=== PATIENT | male | born 1985 | race Caucasian/White ===

== ENCOUNTER 2020-03-12 09:18 | Emergency (ER) | payer OTHER, SELFPAY ==
[2020-03-12 09:36] VITALS: BP 137/75; PULSE 79; RESP 16; TEMP 37.3; O2SAT 99
--- NOTE | 2020-03-12 10:14 | PC.NURSE ---
[id number] noted prior to triage pt informed staff he decided to go to er his hemorrhoid lanced. observed cheerful in no distress ambulating without difficulty
--- NOTE | 2020-03-12 10:24 | PC.NURSE ---
[id number] pain not assessed
== END 2020-03-12 09:30 | disposition left against medical advice (07) ==
LOC: EXPBETH 09:32
PROVIDERS: Emergency Provider Nurse Practitioner
DX: Z53.21 Procedure and treatment not carried out due to patient leaving prior to being seen by health care provider (principal)
CPT/HCPCS: 99199

== ENCOUNTER 2023-08-11 07:18 | Observation (INO) | payer OTHER, SELFPAY ==
[2023-08-11] VITALS (41 sets, daily range): BP systolic 120–146; BP diastolic 61–86; PULSE 67–87; RESP 12–18; TEMP 36.6–37; O2SAT 96–100; BMI 23.6
--- NOTE | ~2023-08-11 | CT_ITS ---
CT of the Abdomen and Pelvis: Indication: Abdominal pain Technique: 2.5 mm axial scans were obtained through the abdomen and pelvis following intravenous adm inistration of 100 cc of Omnipaque 350. Dose reduction technique was used on this scan by utilizing a utomated exposure control and iterative reconstruction technique. The dose-length product (DLP) was 3 60.90 mGy-cm. Findings: Scans through the lung bases are unremarkable. The liver, spleen, pancreas, gallbladder, adrenals and kidneys are within normal limits. No evidence of aortic aneurysm. No lymphadenopathy. There is marked, extensive wall thickening versus mass involving the cecum and proximal ascending col on. There is mild pericolic inflammatory change. No abscess, free air, or bowel obstruction evident. Images through the pelvis were performed. Urinary bladder unremarkable. Prostate gland and seminal ve sicles are unremarkable. No ascites. Impression: Marked, extensive wall thickening versus mass involving the cecum and proximal ascending colon. Given patient age and appearance, findings most likely are present an infectious/inflammatory colitis, how ever neoplastic lesion not completely excluded. Correlate clinically. Consider follow-up exam or colo noscopy after acute therapy. Reviewed, dictated and finalized at [facility]. Impression: Marked, extensive wall thickening versus mass involving the cecum and proximal ascending colon. Given patient age and appearance, findings most likely are pre sent an infectious/inflammatory colitis, however neoplastic lesion not complete ly excluded. Correlate clinically. Consider follow-up exam or colonoscopy after acute therapy.
--- NOTE | 2023-08-11 07:58 | ED.ABDPAIN ---
HPI - Abdominal Pain General Chief Complaint: Abdominal Pain Stated Complaint: abd pain Time Seen by Provider: 08/11/23 07:57 37 years old white male came to the emergency room by private car complaining of right lower quadrant pain started 7 days ago, intermittent, started 1 day after started playing volleyball for the 1st time in his life. He denies any fever, chills, nausea, vomiting, diarrhea, constipation or urinary symptoms. Pain is like sharp, no radiation, no relieving factors, worse with certain position and movement. Patient is healthy otherwise, does not take medicine at home, smokes cigarettes, marijuana and take alcohol occasionally Source: patient Related Data Allergies Allergy/AdvReac Type Severity Reaction Status Date / Time Sulfa (Sulfonamide Allergy Unknown HIVES Verified 08/11/23 07:18 Antibiotics) Review of Systems Review of Systems: All systems reviewed & are unremarkable except as noted in HPI and below Exam Narrative: General appearance: Well-developed, well-nourished Skin: Normal color Head: Normocephalic, nontraumatic Eyes: Clear conjunctiva ENT: Oropharynx normal, ears normal, nose normal Neck: Supple, nontender Chest and respiratory: Airway patent, no respiratory distress, no accessory muscle use Heart: Regular rate/rhythm Abdomen: Soft, nontender, no organomegaly, quiet bowel sounds Vascular: Normal peripheral pulses, normal capillary refill. 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, no gross motor deficit Course Vital Signs Vital signs: Vital Signs Temperature 36.8 C 08/11/23 07:24 Pulse Rate 82 08/11/23 07:24 Respiratory Rate 16 08/11/23 07:24 Blood Pressure 146/81 H 08/11/23 07:24 Pulse Oximetry 100 08/11/23 07:24 Oxygen Delivery Room Air 08/11/23 07:24 Temperature 36.6 C 08/11/23 11:30 Pulse Rate 81 08/11/23 12:30 Respiratory Rate 18 08/11/23 12:30 Blood Pressure 121/67 08/11/23 12:30 Pulse Oximetry 100 08/11/23 12:30 Oxygen Delivery Room Air 08/11/23 07:24 MDM - Abdominal Pain MDM Narrative Medical decision making narrative: Right lower quadrant pain after playing volleyball for the 1st time Differential diagnosis musculoskeletal, appendicitis, kidney stone, urinary tract infection, constipation Blood workup today showed WBC of 13.6 CT scan of the abdomen and pelvis with IV contrast showed colitis versus cecal mass Admit to hospitalist, for colonoscopy tomorrow, discussed with Dr. Rocha In the ED patient received 1 L normal saline. Differential Diagnosis Differential diagnosis: Likely other (As above) Medical Records Attestation: I reviewed the patient's medical records. Lab Data Attestation: I reviewed the patient's lab results. 08/11/23 08:16 08/11/23 08:16 Labs: Lab Results 08/11/23 08/11/23 Range/Units 08:16 09:30 WBC 13.6 H (4.5-10.0) K/mm3 RBC 4.98 (4.6-6.20) M/mm3 Hgb 10.9 L (14.0-18.0) g/dL Hct 37.5 L (42.0-52.0) % MCV 75.3 L (80-100) fl MCH 21.9 L (26-34) pg MCHC 29.1 L (32-36) g/dl RDW 17.7 H (11.5-14.5) % Plt Count 449 H (150-375) k/mm3 MPV 9.0 (7.4-10.4) fl Immature Gran % (Auto) 0.6 H (0-0.5) % Neut % (Auto) 76.7 H (45.5-73.1) % Lymph % (Auto) 12.6 L (18.3-44.2) % [place] % (Auto) 8.9 H (2.6-8.5) % Eos % (Auto) 0.9 (0-4.4) % Baso % (Auto) 0.3 (0.2-1.2) % Lymph # (Auto) 1.71 (0.9-3.2) K/mm3 [place] # (Auto) 1.2 H (0.1-0.6) K/mm3 Eos # (Auto) 0.1 (0-0.3) K/mm3 Baso # (Auto) 0.0 (0.0-0.1) K/mm3 Abs Immat Gran (auto) 0.08 H (0.00-0.031) K
[2023-08-11] MEDS: SODIUM CHLORIDE 0.9% IV 1,000 ML 999 ML IV CONT (08:14)
[2023-08-11] MEDS: ONDANSETRON INJ 4 MG/2 ML VIAL IV PUSH (08:14)
[2023-08-11] MEDS: MORPHINE SULFATE (*CRX) 4 MG/ML INJ IV PUSH ×2 (08:15→15:17)
[2023-08-11 08:40] LABS: Alanine Aminotransferase 16 U/L (6-50); Alkaline Phosphatase 80 U/L (38-126); Anion Gap 5 mmol/L (4-12); Aspartate Amino Transferase 23 U/L (17-59); Bilirubin,Total 0.6 mg/dL (0.2-1.3); Blood Urea Nitrogen 10 mg/dL (9-20); Calcium 9.3 mg/dL (8.4-10.2); Carbon Dioxide 28 mmol/L (22-30); Chloride 104 mmol/L (98-107); Estimated CRCL calculation 123 ml/min; Estimated Glomerular Filt Rate > 60; Glucose 143 mg/dL (65-110); Lipase 34 U/L (23-300); Sodium 137 mmol/L (137-145)
[2023-08-11 08:42] LABS: Basophils Percent Auto 0.3 % (0.2-1.2); Eosinophils Absolute Auto 0.1 K/mm3 (0-0.3); Eosinophils Percent Auto 0.9 % (0-4.4); Hematocrit 37.5 % (42.0-52.0); Hemoglobin 10.9 g/dL (14.0-18.0); Immature Granulocyte Absolute 0.08 K/mm3 (0.00-0.031); Immature Granulocyte Percent A 0.6 % (0-0.5); Lymphocytes Absolute Auto 1.71 K/mm3 (0.9-3.2); Lymphocytes Percent Auto 12.6 % (18.3-44.2); Mean Corpuscular HGB Conc 29.1 g/dl (32-36); Mean Corpuscular Hemoglobin 21.9 pg (26-34); Mean Corpuscular Volume 75.3 fl (80-100); Monocytes Absolute Auto 1.2 K/mm3 (0.1-0.6); Monocytes Percent Auto 8.9 % (2.6-8.5); Neutrophils Absolute Auto 10.4 K/mm3 (1.3-6.7); Neutrophils Percent Auto 76.7 % (45.5-73.1); Platelet Count Result 449 k/mm3 (150-375); Red Blood Count 4.98 M/mm3 (4.6-6.20); Red Cell Distribution Width 17.7 % (11.5-14.5); White Blood Count 13.6 K/mm3 (4.5-10.0)
[2023-08-11 08:59] LABS: Hypochromasia 1+; Platelet Estimate Increased (Adequate)
[2023-08-11 09:00] LABS: Ovalocytes 1+; Schistocytes None Seen
[2023-08-11 09:46] LABS: Appearance Urine Clear (Clear); Bilirubin Urine Negative (Negative); Blood Urine Negative (Negative); Color Urine Yellow (Yellow); Glucose Urine UA Negative (Negative); Ketones Urine Negative (Negative); Leukocyte Esterase Ur Negative LEU/UL (Negative); Nitrate Urine Negative (Negative); Protein Urine Negative (Negative); Urobilinogen Urine 0.2 mg/dL (<2.0); pH Urine 6.5 (5.0-9.0)
[2023-08-11 10:01] LABS: Add Urine Microscopic? NO; Specific Grav Ur 1.054 (1.001-1.035)
[2023-08-11] MEDS: SODIUM CHLORIDE 0.9% IV 1,000 ML 125 ML IV CONT (15:17)
[2023-08-11] MEDS: PIPERACILLN/TAZ 3.375GM/NS50ML 3.375 GM/50 ML BAG IVPB ×2 (15:17→19:13)
--- NOTE | 2023-08-11 15:54 | PC.NURSE ---
Pt assessment unchanged. Transfered to room.
--- NOTE | 2023-08-11 16:14 | ADMGEN ---
This patient, Ari Wheeler, was admitted to 2 Medical Room 247-. Patient/family oriented to hospital policies and general routines including ID bracelet, bed and alarms, visiting hours, pain management, procedures, bathroom and other care routines, personal items, smoking policy, room service/diet, and visiting hours. Information on how to activate the Rapid Response Team has been discussed. Patient/Family are encouraged to report perceived risks to care and to ask questions if they do not understand what they are told or what they should do.
--- NOTE | 2023-08-11 16:21 | PM.IMHP ---
H&P: HPI History of Present Illness Date/Time: 08/11/23 16:25 Chief Complaint: Abdominal pain. Narrative: This is a previously healthy 37-year-old male smoker who presented to the emergency department via private vehicle for evaluation of abdominal pain. The patient provides the following history. A week ago he played volleyball and the following day he developed pain in the right lower quadrant which he describes as sharp, intermittent, and nonradiating. It is worse with certain positions and movement. Ibuprofen has not helped much. The last day he has had loose stools admixed with small amounts of blood. He denies fever, chills, sweats, nausea, vomiting, diarrhea, constipation, weight loss, and injuries. No recent travel and sick contacts. No personal or family history of inflammatory bowel disease. He does however have a strong family history of cancer. Father had colon cancer in his late 20s and he passed at age 52 after it recurred. Mother of breast cancer at age 32. His older sister is 39 and is a breast cancer survivor. He has never had a colonoscopy. In the ED: He was afebrile on arrival with stable vital signs. Labs were significant for WBC count of 13.6, hemoglobin 10.9, hematocrit 37.5%, MCV 75.3, platelet 449. CMP was unremarkable aside from a random glucose of 143. CT of the abdomen and pelvis showed extensive wall thickening versus mass involving the cecum and proximal ascending colon. He received Zofran, morphine, and Zosyn in the ED and he is being admitted in this setting for further treatment and workup. Review of Systems Review of Systems: Twelve systems were reviewed and are negative except for as per HPI. [facility] Past Medical History Medical History Tobacco use Family History Family History Mother Breast cancer Father Colon cancer Sibling Breast cancer Grandparent Lung cancer Social History Social History (Updated 08/11/23 @ 21:11 by Jessica Hall PA-C) Social History: Surrogate medical decision maker: Chastity Martin, sister. Code status: Full code. Smoking packs per day: 1 Smoking cigarettes per day: 20.0 Smoking status: Current every day smoker Tobacco type: cigarettes Alcohol intake: current Drinks per week: 4 Substance use: current Substance use type: marijuana Last use: 08/10/23 Do You Feel Safe in your Home?: Yes Lack of Transportation: No Lack of Food: Never True Current Housing: I Have Housing Concerned About Future Housing: No Difficulty Paying Gas/Electric Bills: No Difficulty Paying for Meds: No Currently Unemployed: No Education: High School Diploma/GED Difficulty w/ Childcare or Family Care: No Additional living arrangements comments: Lives in his own home in [place]. Not , no children. Spiritual care concerns: No Meds Home Medications and Allergies Allergies Allergy/AdvReac Type Severity Reaction Status Date / Time Sulfa (Sulfonamide Allergy Unknown HIVES Verified 08/11/23 07:18 Antibiotics) Vital Signs Vital Signs - 24 hr 08/11/23 07:24 08/11/23 08:30 08/11/23 09:30 Temperature 98.2 F 98.0 F 98.0 F Pulse Rate 82 78 74 Respiratory Rate 16 16 16 Blood Pressure 146/81 H 136/69 139/76 Pulse Oximetry 100 98 98 Oxygen Delivery Room Air 08/11/23 10:21 08/11/23 11:30 08/11/23 12:30 Temperature 98.3 F 97.8 F Pulse Rate 72 68 81 Respiratory Rate 16 16 18 Blood Pressure 140/65 122/77 121/67 Pulse Oximetry 98 98 100 Oxygen Delivery 08/11/23 08:03 08/11/23 08:15 08/11/23 08:30 Temperature Pulse Rate Respiratory Rate Blood Pressure Pulse Oximetry 100 100 99 Oxygen Delivery 08/11/23 08:31 08/11/23 08:45 08/11/23 09:01 Temperature Pulse Rate Respiratory Rate Blood Pressure 136/69 Pulse Oximetry 99 100 96 Oxygen Delivery 08/11/23 09:15 08/11/23 09:31 04
[2023-08-11 17:26] LABS: CRP 4.9 mg/dL (<1.0)
[2023-08-11 17:38] LABS: Erythrocyte Sedimentation Rate 28 mm/hr (0-20)
[2023-08-11 18:31] LABS: Iron 19 ug/dL (49-181)
[2023-08-11 18:34] LABS: Procalcitonin 0.1 ng/mL
[2023-08-11] MEDS: polyethylene glycoL 3350 238 GM BOTTLE PO (18:35)
[2023-08-11] MEDS: BISACODYL 5 MG TABLET EC 20 MG PO (18:35)
[2023-08-11 18:41] LABS: Percent Iron Saturation 4 % (20-50)
[2023-08-11 18:54] LABS: Folic Acid 7.6 ng/mL (2.76->20)
[2023-08-11 19:07] LABS: Ferritin 4.43 ng/mL (17.9-464)
[2023-08-11] MEDS: MORPHINE SULFATE (*CRX) 4 MG/ML INJ 2 MG IV PUSH (19:17)
[2023-08-11] MEDS: SODIUM CHLORIDE 0.9% IV 1,000 ML 90 ML IV CONT (22:26)
[2023-08-12] VITALS (7 sets, daily range): BP systolic 74–129; BP diastolic 38–67; PULSE 59–72; RESP 14–21; TEMP 36.3–36.5; O2SAT 97–99
[2023-08-12] MEDS: PIPERACILLN/TAZ 3.375GM/NS50ML 3.375 GM/50 ML BAG IVPB ×2 (00:04→05:28)
[2023-08-12] MEDS: MAGNESIUM CITRATE 300 ML BTL 150 ML PO (01:30)
[2023-08-12 05:22] LABS: Hematocrit 37.8 % (42.0-52.0); Hemoglobin 10.9 g/dL (14.0-18.0); Mean Corpuscular HGB Conc 28.8 g/dl (32-36); Mean Corpuscular Hemoglobin 21.9 pg (26-34); Mean Corpuscular Volume 76.1 fl (80-100); Platelet Count Result 439 k/mm3 (150-375); Red Blood Count 4.97 M/mm3 (4.6-6.20); Red Cell Distribution Width 17.4 % (11.5-14.5)
[2023-08-12 05:33] LABS: Anion Gap 5 mmol/L (4-12); Blood Urea Nitrogen 6 mg/dL (9-20); Calcium 9.3 mg/dL (8.4-10.2); Carbon Dioxide 28 mmol/L (22-30); Chloride 105 mmol/L (98-107); Estimated CRCL calculation 112 ml/min; Estimated Glomerular Filt Rate > 60; Glucose 112 mg/dL (65-110); Magnesium 2.2 mg/dL (1.6-2.3); Potassium 4.2 mmol/L (3.4-5.0); Sodium 138 mmol/L (137-145)
--- NOTE | 2023-08-12 07:29 | PM.IMPN ---
Progress Note: A&P Assessment and Plan (1) Mass of cecum: Code(s): K63.89 - Other specified diseases of intestine Status: Acute (2) Microcytic anemia: Code(s): D50.9 - Iron deficiency anemia, unspecified Status: Acute (3) Abnormal computed tomography of abdomen and pelvis: Code(s): R93.5 - Abnormal findings on diagnostic imaging of other abdominal regions, including retroperitoneum Status: Acute (4) Tobacco use: Code(s): Z72.0 - Tobacco use Status: Acute (5) Right lower quadrant pain: Code(s): R10.31 - Right lower quadrant pain Status: Acute (6) Abdominal pain: Code(s): R10.9 - Unspecified abdominal pain Status: Acute Plan Mass of the Cecum Family HX colon cancer father in his late 20's CT shows mass of the cecum GI consultedwill likely need colonoscopy CEA pending Zosyn for leukocytosis NPO Stool cultures pending Occult stool pending pain management antiemetics IV Fluids PPI Bowel regiment Microcytic anemia Iron panel start iron supplement Hgb stable Smoking smoking cessation education nicotine patch daily remove at night recommend prescription for nicotine patches at discharge Code status: Full code per patient DVT prophylaxis: SCD's Stress ulcer prophylaxis: Protonix 40 daily PT/OT notes: Ambulatory Disposition: Tommy continues admission to the medical unit for abd pain with mass noted in the cecum, GI consulted will likely need a colonoscopy due to history and CEA pending awaiting on further recommendations from GI. Time Spent With Patient Time with patient: 15 - 25 minutes Subjective Date/time seen: 08/12/23 07:29 Interval history: Admission: This is a previously healthy 37-year-old male smoker who presented to the emergency department via private vehicle for evaluation of abdominal pain.? The patient provides the following history. A week ago he played volleyball and the following day he developed pain in the right lower quadrant which he describes as sharp, intermittent, and nonradiating. It is worse with certain positions and movement. Ibuprofen has not helped much. The last day he has had loose stools admixed with small amounts of blood. He denies fever, chills, sweats, nausea, vomiting, diarrhea, constipation, weight loss, and injuries. No recent travel and sick contacts. No personal or family history of inflammatory bowel disease. He does however have a strong family history of cancer. Father had colon cancer in his late 20s and he passed at age 52 after it recurred. Mother of breast cancer at age 32. His older sister is 39 and is a breast cancer survivor. He has never had a colonoscopy. In the ED: He was afebrile on arrival with stable vital signs. Labs were significant for WBC count of 13.6, hemoglobin 10.9, hematocrit 37.5%, MCV 75.3, platelet 449. CMP was unremarkable aside from a random glucose of 143. CT of the abdomen and pelvis showed extensive wall thickening versus mass involving the cecum and proximal ascending colon. He received Zofran, morphine, and Zosyn in the ED and he is being admitted in this setting for further treatment and workup. 08/11: Patient did report some relief of ABD pain overnight but continued to have some diarrhea, remains NPO for GI will likely need colonoscopy due significant family histoy of cancer and father with colon cancer in his late 20's. CEA was ordered and pending Review of Systems Review of Systems: All systems reviewed & are unremarkable except as noted in HPI and below Exam Narrative: Physical Exam: GENERAL: Alert and oriented x 3. No acute distress. Well-nourished. EYES: EOMI. No scleral icterus. PERRLA. HEENT: Moist mucous membranes. No cervical lymphadenopathy. LUNGS: Clear to auscultation bilaterally. No accessory muscle use. CARDIOVASCULAR: Regular rate and rhythm. No murmur. No JVD. S1-S2 ABDOMEN:
[2023-08-12] MEDS: PANTOPRAZOLE SODIUM IV 40 MG VIAL IV PUSH (08:50)
[2023-08-12] MEDS: MORPHINE SULFATE (*CRX) 4 MG/ML INJ 2 MG IV PUSH (08:52)
[2023-08-12] MEDS: ONDANSETRON INJ 4 MG/2 ML VIAL IV PUSH (08:53)
[2023-08-12] MEDS: LACTATED RINGERS 1,000 ML 150 ML IV CONT (11:11)
--- NOTE | 2023-08-12 11:47 | WPDGICN ---
Assessment and Plan Assessment and plan (1) Right lower quadrant pain: Code(s): R10.31 - Right lower quadrant pain Status: Acute Assessment and Plan: possible colitis based on clinical history but CT scan can not rule out malignancy, he is already doing better given strong family history will do colonoscopy if more diarrhea then will collect stool sample (2) Colitis: Code(s): K52.9 - Noninfective gastroenteritis and colitis, unspecified Status: Acute Assessment and Plan: given empirically abx already doing better colonoscopy (3) Leukocytosis: Code(s): D72.829 - Elevated white blood cell count, unspecified Status: Acute Assessment and Plan: monitor (4) Abnormal computed tomography of abdomen and pelvis: Code(s): R93.5 - Abnormal findings on diagnostic imaging of other abdominal regions, including retroperitoneum Status: Acute GI Consult Note Consult date/time: 08/12/23 11:47 Reason for consult: abnormal colon in CT scan, colitis HPI: Ari Wheeler is a 37 year old male who about 1 week ago developed new onset of pain in the right lower quadrant which he describes as sharp, intermittent, and nonradiating. Ibuprofen did not help, then noted diarrhea with small amounts of blood. He denies fever, chills, sweats, nausea, vomiting. No recent travel and sick contacts. No personal or family history of inflammatory bowel disease. Father had colon cancer in his late 20s and he passed at age 52 after it recurred. Mother of breast cancer at age 32. He has never had a colonoscopy. ER evaluation with WBC count of 13.6, hemoglobin 10.9, hematocrit 37.5%, MCV 75.3, platelet 449. CT of the abdomen and pelvis showed extensive wall thickening versus mass involving the cecum and proximal ascending colon. He received Zofran, morphine, and Zosyn. He is better today and completed bowel prep. Review of Systems Constitutional: Constitutional: Denies body ache(s) Eyes: Eyes: Denies blurry vision ENT: Reports Normal hearing present, Denies headache(s) and Denies neck pain Cardiovascular: Cardiovascular: Denies chest pain and Denies dyspnea Respiratory: Respiratory: Denies dyspnea Gastrointestinal: Gastrointestinal: Reports abdominal pain and Reports diarrhea Genitourinary: Genitourinary: Denies dysuria Musculoskeletal: Musculoskeletal: Denies neck pain Integumentary/Breasts: Skin/Breast: Denies dry skin Neurologic: Reports Normal hearing present, Denies headache(s) and Denies weakness Psychiatric: Psychiatric: Denies anxiety Endocrine: Endocrine: Denies change in body appearance Hematologic/Lymphatic: Hematologic/Lymphatic: Denies easy bleeding Allergic/Immunologic: Allergic/Immunologic: Denies urticaria PMFSH Past Medical History Medical History Colitis Leukocytosis Tobacco use Family History Family History Mother Breast cancer Father Colon cancer Sibling Breast cancer Grandparent Lung cancer Social History Social History (Updated 08/11/23 @ 21:11 by Jessica Hall PA-C) Social History: Surrogate medical decision maker: Chastity Veronica, sister. Code status: Full code. Smoking packs per day: 1 Smoking cigarettes per day: 20.0 Smoking status: Current every day smoker Tobacco type: cigarettes Alcohol intake: current Drinks per week: 4 Substance use: current Substance use type: marijuana Last use: 08/10/23 Do You Feel Safe in your Home?: Yes Lack of Transportation: No Lack of Food: Never True Current Housing: I Have Housing Concerned About Future Housing: No Difficulty Paying Gas/Electric Bills: No Difficulty Paying for Meds: No Currently Unemployed: No Education: High School Diploma/GED Difficulty w/ Childcare or Family Care: No Additional living arrangements comments: Lives in his own home in [facility]
--- NOTE | 2023-08-12 11:51 | WPDANESEPPF ---
Anes - Initial Pre Proc Eval Procedure: Operation Date: 08/12/23 17:30 Proposed Procedures p Colonoscopy - Carlos Alberto Yepez MD Date/Time: 08/12/23 11:51 Surgeon: Ofelia Márquez MD Pre Op Diagnosis: Colitis Versus Cecal Mass Patient Data Age: 37 Gender: M Height: 1.93 m Weight: 88.8 kg Last Vital Signs Temp 97.4 F L 08/12/23 11:04 Pulse 70 08/12/23 11:04 Resp 14 08/12/23 11:04 BP 120/60 08/12/23 11:04 Pulse Ox 99 08/12/23 11:04 O2 Del Method Room Air 08/12/23 11:04 FiO2 21 08/12/23 08:00 Allergies Allergy/AdvReac Type Severity Reaction Status Date / Time Sulfa (Sulfonamide Allergy Unknown HIVES Verified 08/12/23 11:06 Antibiotics) Laboratory Tests 08/11/23 08/12/23 16:58 04:52 WBC 12.0 H K/mm3 (4.5-10.0) RBC 4.97 M/mm3 (4.6-6.20) Hgb 10.9 L g/dL (14.0-18.0) Hct 37.8 L % (42.0-52.0) MCV 76.1 L fl (80-100) MCH 21.9 L pg (26-34) MCHC 28.8 L g/dl (32-36) RDW 17.4 H % (11.5-14.5) Plt Count 439 H k/mm3 (150-375) MPV 9.0 fl (7.4-10.4) ESR 28 H mm/hr (0-20) Sodium 138 mmol/L (137-145) Potassium 4.2 mmol/L (3.4-5.0) Chloride 105 mmol/L (98-107) Carbon Dioxide 28 mmol/L (22-30) Anion Gap 5 L mmol/L (4-12) BUN 6 L mg/dL (9-20) Creatinine 1.00 mg/dL (0.7-1.3) Estim Creat Clear Calc 112 ml/min Estimated GFR > 60 (59 - ) Glucose 112 H mg/dL (65-110) Calcium 9.3 mg/dL (8.4-10.2) Magnesium 2.2 mg/dL (1.6-2.3) Iron 19 L ug/dL (49-181) TIBC 423 ug/dL (265-497) % Saturation 4 L % (20-50) Ferritin 4.43 L ng/mL (17.9-464) C-Reactive Protein 4.9 H mg/dL (<1.0) Carcinoembryonic Ag Pending Vitamin B12 368.0 pg/mL (239-931) Folate 7.6 ng/mL (2.76->20) Procalcitonin 0.1 ng/mL TSH (Reflex) 2.980 uIU/mL (0.465-4.68) Patient hx anesthesia problems: none Family hx anesthesia problems: none Results Review: All pre-operative results and documents have been reviewed as part of the pre-operative evaluation. [facility] Past Medical History Medical History Colitis Leukocytosis Tobacco use Family History Family History Mother Breast cancer Father Colon cancer Sibling Breast cancer Grandparent Lung cancer Social History Social History (Updated 08/11/23 @ 21:11 by Jessica Hall PA-C) Social History: Surrogate medical decision maker: Chastity Martin, sister. Code status: Full code. Smoking packs per day: 1 Smoking cigarettes per day: 20.0 Smoking status: Current every day smoker Tobacco type: cigarettes Alcohol intake: current Drinks per week: 4 Substance use: current Substance use type: marijuana Last use: 08/10/23 Do You Feel Safe in your Home?: Yes Lack of Transportation: No Lack of Food: Never True Current Housing: I Have Housing Concerned About Future Housing: No Difficulty Paying Gas/Electric Bills: No Difficulty Paying for Meds: No Currently Unemployed: No Education: High School Diploma/GED Difficulty w/ Childcare or Family Care: No Additional living arrangements comments: Lives in his own home in [place]. Not , no children. Spiritual care concerns: No Anes - Eval Final PreProcedure Day of Procedure 08/12/23 11:51 Patient weight: normal Heart: regular rate and rhythm Lungs: clear to auscultation Airway: Mallampati scale class II Neurological: alert and oriented Last oral intake: >/= 8 hours ASA classification: II Emergent: no Anesthetic plan: proceed Anesthesia type and monitoring: general GIVS and standard monitoring Results Review: All pre-operative results and documents have been reviewed as part of the pre
[2023-08-12] MEDS: MORPHINE SULFATE (*CRX) 2 MG/ML INJ IV PUSH ×3 (14:03→21:02)
[2023-08-12] MEDS: SODIUM CHLORIDE 0.9% IV 1,000 ML 90 ML IV CONT (14:03)
--- NOTE | 2023-08-12 14:43 | PM.CNGS ---
Assessment and Plan Assessment and plan (1) Mass of cecum: Code(s): K63.89 - Other specified diseases of intestine Status: Acute Assessment and Plan: Patient with malignant-appearing cecal mass on colonoscopy today. Biopsies taken. He is not having any obstructive symptoms and no evidence of an obstruction on CT. There is no evidence of distant metastasis on his CT scan of the abdomen and pelvis. CEA was ordered and is pending. Discussed with the patient that this is likely colon cancer. I discussed the case with Dr. Kowalski who recommends a right hemicolectomy. We can try to do this during this hospitalization and since he has already been prepped for the colonoscopy, I will keep him on clear liquids to hopefully avoid re-prepping him for the surgery. Will follow along and plan timing of the surgery. (2) Microcytic anemia: Code(s): D50.9 - Iron deficiency anemia, unspecified Status: Acute (3) Tobacco use: Code(s): Z72.0 - Tobacco use Status: Acute Plan I have discussed the patient's case and plan of care with Dr. Kowalski. Thank you for allowing us to see the patient in consultation and we will continue to follow along with you. History of Present Illness Consult details Consult date: 08/12/23 Reason for consult: other (Cecal mass) Requesting physician: Carlos Alberto Yepez MD Narrative: This is a 37-year-old man who we have been asked to see in surgical consultation for a cecal mass. He presented to the ER yesterday for RLQ abdominal pain. He noticed some RLQ abdominal pain after playing volleyball about a week ago. His pain was nearly constant for about 3 days and then improved. It then returned a few days ago and progressively got worse. He denies bloating, nausea or vomiting. He does report diarrhea a few days prior to admission with one episode of bloody stool. He typically has a bowel movement every 2-3 days, which has been this way his entire life. Denies any other bowel habit changes, any other episodes of blood in the stool, no weight loss or fatigue. Workup in the ER showed mild anemia and CT evidence of wall thickening of the cecum and ascending colon. No signs of a bowel obstruction or perforation. CT suggested colitis versus a mass. He was admitted and initially on broad-spectrum IV antibiotics. GI consulted and he had a colonoscopy today that showed a large fungating malignant-appearing mass measuring about 5 cm. Spot ink was injected. Antibiotics were stopped. Biopsies were taken and are pending. He is now seen on the medical floor. He reports his abdominal pain improved significantly after he had the bowel prep for the colonoscopy. He has a family history of multiple cancers. His dad had colon cancer in his late 20's and had a colon resection. This returned and he past away in his 50's. His mother and sister have a history of breast cancer. He was told he should start having colonoscopies in his 20's, but he has pushed this off. Denies every having a colonoscopy prior to this hospitalization. No previous medical history or previous surgeries. Review of Systems Review of Systems: All systems reviewed & are unremarkable except as noted in HPI and below PMFSH Past Medical History Medical History Tobacco use Surgical History Surgical History No pertinent past surgical history Family History Family History Mother Breast cancer Father Colon cancer Sibling Breast cancer Grandparent Lung cancer Social History Social History Social History: Surrogate medical decision maker: Chastity Martin, sister. Code status: Full code. Smoking packs per day: 1 Smoking cigarettes per day: 20.0 Smoking status: Current every day smoker Tobacco type: cigarettes Alcohol intake: current Drinks
[2023-08-13] MEDS: SODIUM CHLORIDE 0.9% IV 1,000 ML 90 ML IV CONT (00:22)
[2023-08-13 00:46] LABS: Carcinoembryonic Antigen 6.5 ng/mL (0.0-3.0)
[2023-08-13 05:12] VITALS: BP 113/59; PULSE 60; RESP 18; TEMP 36.8; O2SAT 98
[2023-08-13 05:23] LABS: Basophils Absolute Auto 0.1 K/mm3 (0.0-0.1); Basophils Percent Auto 0.8 % (0.2-1.2); Eosinophils Absolute Auto 0.3 K/mm3 (0-0.3); Eosinophils Percent Auto 2.9 % (0-4.4); Hemoglobin 9.5 g/dL (14.0-18.0); Immature Granulocyte Absolute 0.05 K/mm3 (0.00-0.031); Immature Granulocyte Percent A 0.6 % (0-0.5); Lymphocytes Absolute Auto 2.18 K/mm3 (0.9-3.2); Mean Corpuscular HGB Conc 28.8 g/dl (32-36); Mean Corpuscular Hemoglobin 21.9 pg (26-34); Mean Corpuscular Volume 76.2 fl (80-100); Mean Platelet Volume 9.2 fl (7.4-10.4); Monocytes Absolute Auto 0.7 K/mm3 (0.1-0.6); Monocytes Percent Auto 7.9 % (2.6-8.5); Neutrophils Absolute Auto 5.5 K/mm3 (1.3-6.7); Neutrophils Percent Auto 62.8 % (45.5-73.1); Platelet Count Result 405 k/mm3 (150-375); Red Blood Count 4.33 M/mm3 (4.6-6.20); Red Cell Distribution Width 17.3 % (11.5-14.5); White Blood Count 8.7 K/mm3 (4.5-10.0)
[2023-08-13 05:39] LABS: Hypochromasia 1+; Ovalocytes 1+; Platelet Estimate Increased (Adequate); Schistocytes None Seen
--- NOTE | 2023-08-13 07:15 | PM.IMPN ---
Progress Note: A&P Assessment and Plan (1) Mass of cecum: Code(s): K63.89 - Other specified diseases of intestine Status: Acute (2) Microcytic anemia: Code(s): D50.9 - Iron deficiency anemia, unspecified Status: Acute (3) Abnormal computed tomography of abdomen and pelvis: Code(s): R93.5 - Abnormal findings on diagnostic imaging of other abdominal regions, including retroperitoneum Status: Acute (4) Tobacco use: Code(s): Z72.0 - Tobacco use Status: Acute (5) Right lower quadrant pain: Code(s): R10.31 - Right lower quadrant pain Status: Acute (6) Abdominal pain: Code(s): R10.9 - Unspecified abdominal pain Status: Acute Plan Mass of the Cecum Family HX colon cancer father in his late 20's CT shows mass of the cecum GI consultedwill likely need colonoscopy CEA pending Zosyn for leukocytosis NPO Stool cultures pending Occult stool pending pain management antiemetics IV Fluids PPI Bowel regiment 08/12: colonoscopy suspicious cecum mass biopsy sent CEA elevated 6.4 Surgery recommending RT hemicolectomy oncology consulted clear liquids plan for surgery Microcytic anemia Iron panel start iron supplement Hgb stable Smoking smoking cessation education nicotine patch daily remove at night recommend prescription for nicotine patches at discharge Code status: Full code per patient DVT prophylaxis: SCD's Stress ulcer prophylaxis: Protonix 40 daily PT/OT notes: Ambulatory Disposition: Patient continues admission plan for surgery and consulted to oncology. Time Spent With Patient Time with patient: 15 - 25 minutes Subjective Date/time seen: 08/13/23 07:15 Interval history: Admission: This is a previously healthy 37-year-old male smoker who presented to the emergency department via private vehicle for evaluation of abdominal pain.? The patient provides the following history. A week ago he played volleyball and the following day he developed pain in the right lower quadrant which he describes as sharp, intermittent, and nonradiating. It is worse with certain positions and movement. Ibuprofen has not helped much. The last day he has had loose stools admixed with small amounts of blood. He denies fever, chills, sweats, nausea, vomiting, diarrhea, constipation, weight loss, and injuries. No recent travel and sick contacts. No personal or family history of inflammatory bowel disease. He does however have a strong family history of cancer. Father had colon cancer in his late 20s and he passed at age 52 after it recurred. Mother of breast cancer at age 32. His older sister is 39 and is a breast cancer survivor. He has never had a colonoscopy. In the ED: He was afebrile on arrival with stable vital signs. Labs were significant for WBC count of 13.6, hemoglobin 10.9, hematocrit 37.5%, MCV 75.3, platelet 449. CMP was unremarkable aside from a random glucose of 143. CT of the abdomen and pelvis showed extensive wall thickening versus mass involving the cecum and proximal ascending colon. He received Zofran, morphine, and Zosyn in the ED and he is being admitted in this setting for further treatment and workup. 08/11: Patient did report some relief of ABD pain overnight but continued to have some diarrhea, remains NPO for GI will likely need colonoscopy due significant family histoy of cancer and father with colon cancer in his late 20's. CEA was ordered and pending 08/12: Patient underwent a colonoscopy yesterday which showed a suspicious mass at the cecum and ascending colon, CEA elevated at 6.4. Patient was informed of findings and surgery is recommending a right hemicolectomy, a consult to oncology was also placed biopsy pending. Review of Systems Review of Systems: Twelve systems were reviewed and are negative except for as per HPI. All systems reviewed & are unremarkable except
[2023-08-13 07:18] LABS: Alanine Aminotransferase 11 U/L (6-50); Albumin Level 3.3 g/dL (3.5-5.1); Alkaline Phosphatase 68 U/L (38-126); Anion Gap 3 mmol/L (4-12); Aspartate Amino Transferase 26 U/L (17-59); Bilirubin,Total 0.6 mg/dL (0.2-1.3); Blood Urea Nitrogen 6 mg/dL (9-20); Calcium 8.7 mg/dL (8.4-10.2); Carbon Dioxide 29 mmol/L (22-30); Chloride 106 mmol/L (98-107); Estimated CRCL calculation 123 ml/min; Estimated Glomerular Filt Rate > 60; Glucose 96 mg/dL (65-110); Potassium 4.1 mmol/L (3.4-5.0); Sodium 138 mmol/L (137-145)
--- NOTE | 2023-08-13 08:33 | WPDANESPN ---
Anes - Prog Note Post-Op Date/Time: 08/13/23 08:33 Vital Signs: Last Vital Signs Temp 36.8 C 08/13/23 05:12 Pulse 60 08/13/23 05:12 Resp 18 08/13/23 05:12 BP 113/59 L 08/13/23 05:12 Pulse Ox 98 08/13/23 05:12 O2 Del Method Room Air 08/12/23 12:32 FiO2 21 08/12/23 08:00 Pain Score (VAS): 0 I/O: Intake & Output 08/12/23 08/13/23 08/13/23 23:59 07:59 15:59 Intake Total 360 1178.5 Balance 360 1178.5 Laboratory Tests 08/13/23 04:52 08/13/23 04:52 08/11/23 08/13/23 16:58 04:52 WBC 8.7 RBC 4.33 L Hgb 9.5 L Hct 33.0 L MCV 76.2 L MCH 21.9 L MCHC 28.8 L RDW 17.3 H Plt Count 405 H MPV 9.2 Immature Gran % (Auto) 0.6 H Neut % (Auto) 62.8 Lymph % (Auto) 25.0 [place] % (Auto) 7.9 Eos % (Auto) 2.9 Baso % (Auto) 0.8 Lymph # (Auto) 2.18 [place] # (Auto) 0.7 H Eos # (Auto) 0.3 Baso # (Auto) 0.1 Abs Immat Gran (auto) 0.05 H Absolute Neuts (auto) 5.5 Absolute Nucleated RBC 0.000 Nucleated RBC % 0.0 Platelet Estimate Increased Hypochromasia 1+ Ovalocytes 1+ Schistocytes None seen Sodium 138 Potassium 4.1 Chloride 106 Carbon Dioxide 29 Anion Gap 3 L BUN 6 L Creatinine 0.90 Estim Creat Clear Calc 123 Estimated GFR > 60 Glucose 96 Calcium 8.7 Total Bilirubin 0.6 AST 26 ALT 11 Alkaline Phosphatase 68 Total Protein 6.0 L Albumin 3.3 L Carcinoembryonic Ag 6.5 H Patient Feedback: Patient satisfied with anesthetic care.
[2023-08-13] MEDS: PANTOPRAZOLE SODIUM IV 40 MG VIAL IV PUSH (09:37)
--- NOTE | 2023-08-13 10:00 | PM.PNGS ---
Progress Note: A&P Assessment and Plan (1) Mass of cecum: Code(s): K63.89 - Other specified diseases of intestine Status: Acute Assessment and Plan: Patient with malignant-appearing cecal mass on colonoscopy. Biopsies pending. No signs or symptoms of an obstruction. CEA 6.5. We will wait for the biopsy results, but this is likely colon cancer. We will advance his diet as tolerated today and I will transition him to oral pain medications. If he is able to tolerate a diet and his abdominal pain is well-controlled, then he could be discharged home from our standpoint. We will plan to set him up for a right hemicolectomy next week as an outpatient once we see his biopsy results. The patient would prefer to go home and return rather than waiting days for an opening in the surgery schedule after his biopsies come back. He is aware that he would have to go through bowel prep again for this surgery. (2) Microcytic anemia: Code(s): D50.9 - Iron deficiency anemia, unspecified Status: Acute (3) Tobacco use: Code(s): Z72.0 - Tobacco use Status: Acute Plan I have discussed the patient's case and plan of care with Dr. Kowalski. Subjective Subjective Date/Time Seen: 08/13/23 10:00 Patient reports: pain is less, tolerating liquids well, flatus, bowel movement and afebrile Interval history: Patient seen this morning. He still having some right lower quadrant abdominal pain, but reports this has improved since admission. He is currently getting IV morphine but has no options for oral pain medications. He denies any nausea, bloating, or vomiting. He is tolerating clear liquids. Exam Const: General: comfortable and no acute distress Nutritional Appearance: average body habitus Orientation/consciousness: patient oriented x3 GI: Inspection: non-distended and no visible herniation GI Palp: Yes Soft to palpation, Yes Tenderness to palpation present (GI) (RLQ), No Guarding due to palpation present (GI), Yes Palpable mass present (Firm palpable mass and right lower quadrant) and No Rebound tenderness present Auscultation: normal bowel sounds Objective Data Vital Signs Vital Signs: Vital Signs - 24 hr 08/12/23 11:04 08/12/23 12:12 08/12/23 12:22 Temperature 97.4 F L Pulse Rate 70 69 59 L Respiratory Rate 14 21 H 19 Blood Pressure 120/60 74/38 L 94/45 L Pulse Oximetry 99 98 98 Oxygen Delivery Room Air Room Air Room Air 08/12/23 12:32 08/12/23 14:00 08/12/23 21:01 Temperature 97.5 F L 97.7 F Pulse Rate 66 63 66 Respiratory Rate 15 14 20 Blood Pressure 100/61 129/67 120/65 Pulse Oximetry 99 97 98 Oxygen Delivery Room Air 08/13/23 05:12 Temperature 98.2 F Pulse Rate 60 Respiratory Rate 18 Blood Pressure 113/59 L Pulse Oximetry 98 Oxygen Delivery Intake/Output Intake/Output: Intake & Output 08/10/23 08/11/23 08/12/23 08/13/23 23:59 23:59 23:59 23:59 Intake Total 2783.8 2060 1178.5 Balance 2783.8 2060 1178.5 Meds/Results Medications: Active Medications Generic Name Dose Route Start Last Admin Trade Name Freq PRN Reason Stop Dose Admin Acetaminophen 650 mg 08/13/23 09:26 Acetaminophen 325 Mg Tablet PO Q6H PRN Mild Pain (1-3) or Fever Hydrocodone Bitart/Acetaminophen 1 tab 08/13/23 09:27 Hydrocodone/Acetaminophen (*Crx) 5-325 Mg Tablet PO Q4H PRN Pain Rated 4-6 Hydrocodone Bitart/Acetaminophen 1 tab 08/13/23 09:27 Hydrocodone/Acetaminophen (*Crx) 10-325 Mg Tablet PO Q6H PRN Pain Rated 7-10 Sodium Chloride 1,000 mls @ 90 mls/hr 08/11/23 13:45 08/13/23 00:22 Normal Saline Iv IV CONT 90 mls/hr .[id number] MIYA Administration Morphine Sulfate 2 mg 08/12/23 10:40 08/12/23 21:02 Morphine Sulfate (*Crx) 2 Mg/Ml Inj IV PUSH 2 mg Q2H PRN Administration Breakthrough Pain Ondansetron HCl 4 mg 08/11/23 13:43 08/12/23 08:53 Ondansetron Inj 4 Mg/2 Ml Vial IV PUSH 4 mg Q4H PRN Administra
[2023-08-13] MEDS: HYDROcodone/acetaminophen (*CRX) 5-325 MG TABLET 1 TAB PO (12:28)
[2023-08-13 14:00] VITALS: BP 118/62; PULSE 62; RESP 18; TEMP 36.6; O2SAT 98
--- NOTE | 2023-08-13 15:40 | PM.DS ---
DS: Admitting Diagnosis Discharge Date 08/15/2023 Admitting Diagnosis Mass of the Cecum DS: Discharge Diagnosis Discharge Diagnosis (1) Mass of cecum: Code(s): K63.89 - Other specified diseases of intestine Status: Acute (2) Microcytic anemia: Code(s): D50.9 - Iron deficiency anemia, unspecified Status: Acute (3) Abnormal computed tomography of abdomen and pelvis: Code(s): R93.5 - Abnormal findings on diagnostic imaging of other abdominal regions, including retroperitoneum Status: Acute (4) Tobacco use: Code(s): Z72.0 - Tobacco use Status: Acute (5) Right lower quadrant pain: Code(s): R10.31 - Right lower quadrant pain Status: Acute (6) Abdominal pain: Code(s): R10.9 - Unspecified abdominal pain Status: Acute Plan Mass of the Cecum Family HX colon cancer father in his late 20's CT shows mass of the cecum GI consultedwill likely need colonoscopy CEA pending Zosyn for leukocytosis NPO Stool cultures pending Occult stool pending pain management antiemetics IV Fluids PPI Bowel regiment 08/12: colonoscopy suspicious cecum mass biopsy sent CEA elevated 6.4 Surgery recommending RT hemicolectomy oncology consulted clear liquids plan for surgery Microcytic anemia Iron panel start iron supplement Hgb stable Smoking smoking cessation education nicotine patch daily remove at night recommend prescription for nicotine patches at discharge Disposition: Patient was discharged to home and scheduled for surgery Thursday08/17/2023 for RT hemicolectomy DS: Summary Hospital Course Reason for hospitalization: Mass in Cecum Hospital Course: Admission: This is a previously healthy 37-year-old male smoker who presented to the emergency department via private vehicle for evaluation of abdominal pain.? The patient provides the following history. A week ago he played volleyball and the following day he developed pain in the right lower quadrant which he describes as sharp, intermittent, and nonradiating. It is worse with certain positions and movement. Ibuprofen has not helped much. The last day he has had loose stools admixed with small amounts of blood. He denies fever, chills, sweats, nausea, vomiting, diarrhea, constipation, weight loss, and injuries. No recent travel and sick contacts. No personal or family history of inflammatory bowel disease. He does however have a strong family history of cancer. Father had colon cancer in his late 20s and he passed at age 52 after it recurred. Mother of breast cancer at age 32. His older sister is 39 and is a breast cancer survivor. He has never had a colonoscopy. In the ED: He was afebrile on arrival with stable vital signs. Labs were significant for WBC count of 13.6, hemoglobin 10.9, hematocrit 37.5%, MCV 75.3, platelet 449. CMP was unremarkable aside from a random glucose of 143. CT of the abdomen and pelvis showed extensive wall thickening versus mass involving the cecum and proximal ascending colon. He received Zofran, morphine, and Zosyn in the ED and he is being admitted in this setting for further treatment and workup. 08/11: Patient did report some relief of ABD pain overnight but continued to have some diarrhea, remains NPO for GI will likely need colonoscopy due significant family histoy of cancer and father with colon cancer in his late 20's. CEA was ordered and pending 08/12:? Patient underwent a colonoscopy yesterday which showed a suspicious mass at the cecum and ascending colon, CEA elevated at 6.4.? Patient was informed of findings and surgery is recommending a right hemicolectomy, a consult to oncology was also placed biopsy pending.? 08/13: Biopsy showing adenocarcinoma surgery has planned for surgery Wednesday 08/16 , patient requested to go home and come back was passing gas and tolerating small amounts of oral intake he was made aware to seek medical attention
--- NOTE | 2023-08-13 17:42 | WPDGIPROGNO ---
Progress Note: A&P Assessment and Plan (1) Colorectal cancer: Code(s): C19 - Malignant neoplasm of rectosigmoid junction Status: Acute Assessment and Plan: bx c/w colon cancer (family history of colon cancer in father) surgery will set up outpatient partial colectomy also will refer to oncology as outpatient (2) Leukocytosis: Code(s): D72.829 - Elevated white blood cell count, unspecified Status: Acute Assessment and Plan: resolved no signs of colitis (3) Microcytic anemia: Code(s): D50.9 - Iron deficiency anemia, unspecified Status: Acute Assessment and Plan: probably from colon cancer (4) Right lower quadrant pain: Code(s): R10.31 - Right lower quadrant pain Status: Acute (5) Abnormal computed tomography of abdomen and pelvis: Code(s): R93.5 - Abnormal findings on diagnostic imaging of other abdominal regions, including retroperitoneum Status: Acute Subjective Date/time seen: 08/13/23 14:00 Interval history: I talked to pathologist, bx c/w adenocarcinoma patient was already evaluated by surgery and will have partial colectomy as outpatient Review of Systems Review of Systems: All systems reviewed & are unremarkable except as noted in HPI and below Exam Narrative: GENERAL: Alert and oriented x 3. No acute distress. Well-nourished. EYES: EOMI. No scleral icterus. PERRLA. HEENT: Moist mucous membranes. No cervical lymphadenopathy. LUNGS: Clear to auscultation bilaterally. No accessory muscle use. CARDIOVASCULAR: Regular rate and rhythm. No murmur. No JVD. S1-S2 ABDOMEN: Soft, mild tenderness and non-distended. No palpable masses. EXTREMITIES: No edema. Non-tender SKIN: No rashes or lesions. Skin warm, dry. NEUROLOGIC: No focal neurological deficits. CN II-XII grossly intact PSYCHIATRIC: Appropriate mood and affect. Good judgement and insight. No visual or auditory hallucinations. No suicidal or homicidal ideation. Objective Data Vital Signs Vital Signs: Vital Signs - 24 hr 08/12/23 21:01 08/13/23 05:12 08/13/23 08:00 Temperature 97.7 F 98.2 F Pulse Rate 66 60 Respiratory Rate 20 18 Blood Pressure 120/65 113/59 L Pulse Oximetry 98 98 Oxygen Delivery Room Air 08/13/23 14:00 Temperature 98 F Pulse Rate 62 Respiratory Rate 18 Blood Pressure 118/62 Pulse Oximetry 98 Oxygen Delivery Intake/Output Intake/Output: Intake & Output 08/10/23 08/11/23 08/12/23 08/13/23 23:59 23:59 23:59 23:59 Intake Total 2783.8 2060 1538.5 Balance 2783.8 2060 1538.5 Meds/Results Radiology Results: ITS Impressions Abdomen/Pelvis CT 08/11/23 11:53 Impression: Marked, extensive wall thickening versus mass involving the cecum and proximal ascending colon. Given patient age and appearance, findings most likely are present an infectious/inflammatory colitis, however neoplastic lesion not completely excluded. Correlate clinically. Consider follow-up exam or colonoscopy after acute therapy. Labs Labs: Laboratory Results - last 24 hr 08/11/23 08/13/23 16:58 04:52 WBC 8.7 RBC 4.33 L Hgb 9.5 L Hct 33.0 L MCV 76.2 L MCH 21.9 L MCHC 28.8 L RDW 17.3 H Plt Count 405 H MPV 9.2 Immature Gran % (Auto) 0.6 H Neut % (Auto) 62.8 Lymph % (Auto) 25.0 [place] % (Auto) 7.9 Eos % (Auto) 2.9 Baso % (Auto) 0.8 Lymph # (Auto) 2.18 [place] # (Auto) 0.7 H Eos # (Auto) 0.3 Baso # (Auto) 0.1 Abs Immat Gran (auto) 0.05 H Absolute Neuts (auto) 5.5 Absolute Nucleated RBC 0.000 Nucleated RBC % 0.0 Platelet Estimate Increased Hypochromasia 1+ Ovalocytes 1+ Schistocytes None seen Sodium 138 Potassium 4.1 Chloride 106 Carbon Dioxide 29 Anion Gap 3 L BUN 6 L Creatinine 0.90 Estim Creat Clear Calc 123 Estimated GFR > 60 Glucose 96 Calcium 8.7 Total Bilirubin 0.6 AST 26 ALT 11 Alkaline Phosphatase 68 Total Protei
== END 2023-08-13 16:50 | disposition home or self-care (01) ==
LOC: ANHED 13:49 → ANH2MED 15:24
PROVIDERS: Internal Medicine Gastroenterology; Nurse Practitioner Family; Physician Assistant; Admitting Provider Hospitalist; Emergency Provider Emergency Medicine; Visit Provider Hospitalist
PROC: 0DJD8ZZ Inspection of Lower Intestinal Tract, Via Natural or Artificial Opening Endoscopic (ICD-10-PCS; CPT 45378; principal; 2023-08-12 17:30)
DX: C18.0 Malignant neoplasm of cecum (principal); D50.9 Iron deficiency anemia, unspecified; F17.210 Nicotine dependence, cigarettes, uncomplicated; F12.90 Cannabis use, unspecified, uncomplicated; F10.90 Alcohol use, unspecified, uncomplicated; Z80.0 Family history of malignant neoplasm of digestive organs
CPT/HCPCS: 45380; 45381; 36415; 74177; 80048; 80053; 81003; 82378; 82607; 82728; 82746; 83540; 83550; 83690; 83735; 84145; 84443; 85025; 85027; 85652; 86140; 88305; 96361; 96365; 96375; 96376; 99285; A9270; C9113; G0378; J1596; J2270; J2371; J2405; J2543; J2704; J7030; J7120; Q9967

== ENCOUNTER 2023-08-17 07:57 | Outpatient (CLI) | payer OTHER, SELFPAY ==
--- NOTE | 2023-08-17 08:51 | ECG_ITS ---
Measurements Intervals [place] Rate: 77 P: 63 CA: 154 QRS: -11 QRSD: 97 T: 34 QT: 370 QTc: 401 Interpretive Statements SINUS RHYTHM INCOMPLETE RBBB BORDERLINE ECG SEE SCANNED COPY FOR SIGNATURE MTDD
[2023-08-17 09:31] LABS: Hematocrit 37.1 % (42.0-52.0); Hemoglobin 10.9 g/dL (14.0-18.0)
== END 2023-08-17 07:58 | disposition home or self-care (01) ==
LOC: ANHSURGERY 08:01
PROVIDERS: Anesthesiology; Visit Provider Surgery
DX: C19 Malignant neoplasm of rectosigmoid junction (principal); Z01.818 Encounter for other preprocedural examination; I45.10 Unspecified right bundle-branch block
CPT/HCPCS: 36415; 85014; 85018; 86850; 86900; 86901; 93005

== ENCOUNTER 2023-08-26 12:13 | Inpatient (IN) | payer OTHER, SELFPAY ==
--- NOTE | 2023-08-17 07:45 | PC.NURSE ---
Addendum entered by April Limon RN 08/20/23 14:31: PT TO ARRIVE AT 0600 ON 08/26/23 FOR SURGERY AT 0730. Original Note: PRE-OP INSTRUCTIONS, PLEASE READ CAREFULLY Report to the Outpatient Waiting Room, entrance under the green pavilion located off [facility], at time _1000_ on date _08/18/23_. Planned Procedure Time: _1200_. PACK A SMALL OVERNIGHT BAG AND LEAVE IN THE CAR Time changes happen often and if your time is changed the preop area will call you the afternoon before. - You and your visitor will be asked to self-screen and do not enter if you have any COVID symptoms. - A mask is optional within the hospital at this time. -VISITING HOURS 8AM-8PM Patients may have clear liquids (water, carbonated beverages, clear teas, apple juice) until 3 hours prior to surgery (0900 AM) with a maximum of 20 ounces. - No food from midnight until time of surgery Take the following medications with a SIP of water the morning of surgery: _PAIN PILL IF NEEDED_ DO NOT STOP ANY OF YOUR OTHER PRESCRIPTION MEDICATIONS PRIOR TO SURGERY ?EXCEPT THE FOLLOWING Medications to discontinue per physician ___NONE___, Date to take last dose Please no make-up, nail azerbaijani, hairspray, perfume, deodorant, or body powder the day of surgery. No jewelry (including any body piercings) or valuables the day of surgery, leave them at home. Please take a shower or bath the night before, or the morning of, surgery with an antibacterial soap. Wear comfortable, loose fitting clothing. - Jewelry must be removed prior to entering the operating room. Rings and piercings that are not removed may be cut off. - The hospital will not accept responsibility for valuables. - Please leave all valuables, including medications, at home the day of surgery. If you are going home after surgery, a licensed operator and truck driver must drive you home. - NO public transportation without another adult if you receive anesthesia. - We recommend that an adult stay with you for 24 hours following discharge. - We also recommend that you do not drive, make important decision, drink alcoholic beverages, or take any drugs that were not prescribed by your health care provider for at least 24 hours after your discharge time. Follow any additional instructions given to you from your surgeon. ENSURE BUNDLE, PRE-OP ANTIBIOTICS, BOWEL PREP If you or anyone in your household have experienced Covid symptoms in the past week, please notify your surgeon or the nurse liaison at the phone number below for possible testing. Instructions given to _PATIENT & SISTER_and asked if any additional questions and then verbalized understanding. Patient advised to call surgeon office or pre surgery nurse liaison [phone] if any additional questions.
[2023-08-17 08:15] VITALS: BP 132/68; PULSE 70; RESP 20; TEMP 37.2; O2SAT 100; BMI 23.9
--- NOTE | 2023-08-20 14:31 | PC.NURSE ---
Pt states no changes in medications or health history since initial interview. New pre-op instructions reviewed with pt. Pt denies further questions at this time.
[2023-08-26] VITALS (12 sets, daily range): BP systolic 106–125; BP diastolic 51–86; PULSE 69–87; RESP 12–20; TEMP 36.2–36.6; O2SAT 95–100; BMI 23.3
[2023-08-26] MEDS: LACTATED RINGERS 1,000 ML 30 ML IV CONT ×2 (06:55→11:12)
[2023-08-26] MEDS: KETOROLAC 15 MG/ML VIAL (*BKC) IV PUSH ×2 (07:03→10:18)
[2023-08-26] MEDS: ACETAMINOPHEN 500 MG TABLET 1000 MG PO (07:03)
--- NOTE | 2023-08-26 07:12 | WPDANESEPPF ---
Anes - Initial Pre Proc Eval Procedure: Operation Date: 08/26/23 07:30 Proposed Procedures p Hand Assisted Laparoscopic Right Hemicolectomy - Catracho Kowalski MD Date/Time: 08/26/23 07:12 Surgeon: Catracho Kowalski MD Pre Op Diagnosis: colon cancer Patient Data Age: 37 Gender: M Height: 1.93 m Weight: 89.2 kg Last Vital Signs Temp 99.0 F 08/17/23 08:15 Pulse 70 08/17/23 08:15 Resp 20 08/17/23 08:15 BP 132/68 08/17/23 08:15 Pulse Ox 100 08/17/23 08:15 O2 Del Method Room Air 08/17/23 08:15 Allergies Allergy/AdvReac Type Severity Reaction Status Date / Time Sulfa (Sulfonamide Allergy Unknown HIVES Verified 08/20/23 14:29 Antibiotics) Home Medications Medication Instructions Recorded Confirmed Type pantoprazole 40 mg tablet,delayed 40 mg PO QAM #14 tabs 08/13/23 08/20/23 Rx release (Protonix) hydrocodone 5 mg-acetaminophen 325 1 tablet PO Q6H PRN pain #20 tabs 08/19/23 08/20/23 Rx mg tablet ciprofloxacin HCl 500 mg tablet 500 mg PO .COMPLEX #1 tablet 08/20/23 08/20/23 Rx metronidazole 500 mg tablet 500 mg PO .COMPLEX #3 tabs 08/20/23 08/20/23 Rx Patient hx anesthesia problems: none Family hx anesthesia problems: none Results Review: All pre-operative results and documents have been reviewed as part of the pre-operative evaluation. REPLACED BY [facility] Past Medical History Medical History Tobacco use Surgical History Surgical History No pertinent past surgical history Family History Family History Mother Breast cancer Father Colon cancer Sibling Breast cancer Grandparent Lung cancer Social History Social History Social History: Surrogate medical decision maker: Chastity Veronica, sister. Code status: Full code. Smoking packs per day: 1 Smoking cigarettes per day: 20.0 Years smoked: 20 Smoking pack-years: 20.00 Smoking status: Current every day smoker Tobacco type: cigarettes Second hand tobacco smoke exposure: Yes Alcohol intake: current Drinks per week: 4 Substance use: current Substance use type: marijuana Other substance usage details: FOR RECREATION, SLEEP & PAIN Last use: 08/16/23 PM Do You Feel Safe in your Home?: Yes Lack of Transportation: No Lack of Food: Never True Current Housing: I Have Housing Concerned About Future Housing: No Difficulty Paying Gas/Electric Bills: No Difficulty Paying for Meds: No Currently Unemployed: No Education: High School Diploma/GED Difficulty w/ Childcare or Family Care: No Living arrangements: alone Additional living arrangements comments: Lives in his own home in [place]. Not , no children. Spiritual care concerns: No Anes - Eval Final PreProcedure Day of Procedure 08/26/23 07:12 Patient weight: normal Heart: regular rate and rhythm Lungs: clear to auscultation Airway: Mallampati scale class II (upper chipped) Neurological: alert and oriented Last oral intake: >/= 8 hours ASA classification: III Emergent: no Anesthetic plan: proceed Anesthesia type and monitoring: general ETT and standard monitoring Results Review: All pre-operative results and documents have been reviewed as part of the pre-operative evaluation. Informed Consent: The patient's anesthetic plan and its attendant risks and benefits were discussed with the patient/family/POA. Questions were solicited and answers provided to the satisfaction of the patient/family/POA.
[2023-08-26] MEDS: ALVIMOPAN 12 MG CAPSULE PO ×2 (07:20→20:15)
--- NOTE | 2023-08-26 07:20 | WPDHPUPDATE1 ---
History and Physical Update Update Date/Time: 08/26/23 07:20 Pt was in hospital with c/o RLQ pain. Workup revealed RLQ mass and colonoscopy with biopsy of right colon mass showed a well differentiated colonic adenoCA. CT scan showed no evidence of obvious metastatic disease. He presents today for a hand assisted laparoscopic right hemicolectomy, possible open. History and Physical has been reviewed, including an updated exam of the patient. There are NO changes in the patient's condition. Risks, benefits, and alternatives have been discussed and questions answered. Patient agrees to proceed with procedure.
[2023-08-26] MEDS: metroNIDAZOLE 500 MG/ISO 100ML 500 MG/100 ML BAG 100 MG IVPB (07:25)
[2023-08-26] MEDS: ceFAZolin 2 GM/D5W 50 ML 2 GM/50 ML BAG IVPB (07:45)
[2023-08-26] MEDS: LIDO 1%/EPINEPHRINE 1:100,000 50 ML VIAL 20 ML INFILTRATE (08:47)
[2023-08-26] MEDS: BUPivacaine HCL 0.5% PF 30 ML VIAL 20 ML INFILTRATE (08:50)
--- NOTE | 2023-08-26 12:57 | PC.NURSE ---
This patient, Ari Wheeler, was admitted to 3 Med Surg Room 310-01. Patient/family oriented to hospital policies and general routines including ID bracelet, bed and alarms, visiting hours, pain management, procedures, bathroom and other care routines, personal items, smoking policy, room service/diet, and visiting hours. Information on how to activate the Rapid Response Team has been discussed. Patient/Family are encouraged to report perceived risks to care and to ask questions if they do not understand what they are told or what they should do.
[2023-08-26] MEDS: MORPHINE SULFATE (*CRX) 4 MG/ML INJ IV PUSH ×3 (13:11→23:17)
[2023-08-26] MEDS: IBUPROFEN IV 800 MG/200 ML 800 MG/200 ML BAG 400 MG IVPB ×2 (13:12→20:56)
[2023-08-26] MEDS: LACTATED RINGERS 1,000 ML 120 ML IV CONT ×2 (14:26→23:17)
--- NOTE | 2023-08-26 16:25 | W.PM.PROC2 ---
Procedure Note - Detailed Date of Procedure 08/26/23 Pre-op Diagnosis Well differentiated invasive right colonic adenocarcinoma Post-op Diagnosis Same Procedure Performed Hand assisted laparoscopic right hemicolectomy with [id number] stapled ileocolic anastomosis. Surgeon Catracho Kowalski MD [employer]ist [facility] Anesthesia General Indications Patient is a 37-year-old gentleman who initially presented to the emergency room complaints of right-sided abdominal pain. He was admitted to the hospital and CT scan abdomen pelvis performed showing a large right colonic mass in the cecum. Colonoscopy was then performed showing a large mass in the cecum which was not totally obstructive. Biopsies of the mass showed it to be a well-differentiated adenocarcinoma. CT scan did not show any evidence of metastatic disease to distant sites. Patient presents for a hand assisted laparoscopic right hemicolectomy to resected colon cancer. Findings Patient had a large baseball sized mass in the cecum of the right colon. It was not fixed to the right lower quadrant abdominal wall. It easily lifted off of the retroperitoneal structures. There were however several large lymph nodes along the ileocolic chain. No masses were palpated or seen in the liver. No peritoneal studding was noted. There was no obvious extension of the tumor directly outside the cecum to the mesentery or loops of small bowel. Description of Procedure After informed consent was obtained patient was brought to the operating room was placed supine position and then general endotracheal anesthesia was administered. A Tolbert catheter was placed decompress the bladder an orogastric tube was placed to decompress the stomach. The patient had undergone a home bowel prep. The abdomen was then prepped and draped usual sterile fashion. A time-out was then performed correctly identifying the patient as well as the procedure to be performed verifying he was given perioperative IV antibiotics. I then proceeded to place a 5mm Optiview port in the left upper quadrant and entered the abdomen with a direct optical insertion. Once inside the abdomen insufflated to adequate pneumoperitoneum of 15mmHg of CO2. The cecum and large mass was visualized in the right lower quadrant of the abdomen. Just distal to the cecum in the ascending colon there was a tattoo placed by the endoscopist. I did not see any peritoneal studding the pelvis or in the right lower quadrant abdominal sidewall. There were no masses seen or palpated within the liver. I then placed additional trocar ports to include a 5mm trocar port in the right upper quadrant as well as another 5mm trocar port in the more lateral left upper quadrant. These were all placed under direct visualization. I made am 8cm midline incision starting up the umbilicus extended cephalad until lower epigastric region. Dissection carried down through the subcutaneous tissues in the midline fascia was divided with electrocautery and the abdomen was entered. The fascia was opened up to mesh less the skin incision and then a GelPort for hand access was placed. After assembling the GelPort I then reached she had pneumoperitoneum and placed my right hand into the abdomen through the GelPort. I then proceeded to divide the omentum and right hepatic colic ligament with the LigaSure device. Identified the 1st and 2nd portions of the duodenum and made sure that I preserved these without any injury. I divided the omentum off of the mid and distal transverse colon utilizing the LigaSure device. I continued to mobilize the hepatic flexure and ascending right colon by dividing the lateral peritoneal attachments with the LigaSure. I then mobilized the ascending colon to the midline I could easily feel the large baseball sized tumor within the cecum. The cecum was not fixed to the lateral abdominal sidewall. It was not fixed to the retroperitoneal structures. Once I had t
[2023-08-26] MEDS: ceFAZolin 1 GM/NS 50 ML 1 GM/50 ML BAG IVPB ×2 (16:52→23:17)
[2023-08-26] MEDS: HYDROcodone/acetaminophen (*CRX) 5-325 MG TABLET 1 TAB PO (20:15)
[2023-08-27] MEDS: MORPHINE SULFATE (*CRX) 4 MG/ML INJ IV PUSH (03:42)
[2023-08-27] MEDS: IBUPROFEN IV 800 MG/200 ML 800 MG/200 ML BAG 400 MG IVPB ×3 (05:06→20:59)
[2023-08-27] MEDS: HYDROcodone/acetaminophen (*CRX) 5-325 MG TABLET 1 TAB PO ×4 (06:23→20:58)
[2023-08-27 06:28] VITALS: BP 95/48; PULSE 60; RESP 16; TEMP 36.2; O2SAT 97
[2023-08-27] MEDS: ALVIMOPAN 12 MG CAPSULE PO ×2 (08:06→20:59)
[2023-08-27] MEDS: PANTOPRAZOLE 40 MG TABLET PO (08:06)
--- NOTE | 2023-08-27 08:26 | WPDANESPN ---
Anes - Prog Note Post-Op Date/Time: 08/27/23 08:26 Cardiovascular status: normal Respiratory status: normal Airway patency: baseline Mental status: baseline Post-Op hydration status: normal Vital Signs: Last Vital Signs Temp 36.2 C L 08/27/23 06:28 Pulse 60 08/27/23 06:28 Resp 16 08/27/23 06:28 BP 95/48 L 08/27/23 06:28 Pulse Ox 97 08/27/23 06:28 O2 Del Method Room Air 08/26/23 20:00 O2 Flow Rate 6 08/26/23 11:40 Pain Score (VAS): 310 I/O: Intake & Output 08/26/23 08/27/23 08/27/23 23:59 07:59 15:59 Intake Total 1929 Balance 193 Post-procedural complaints: none Patient Feedback: Patient satisfied with anesthetic care.
[2023-08-27] MEDS: LACTATED RINGERS 1,000 ML 120 ML IV CONT (09:25)
[2023-08-27 09:31] LABS: Anion Gap 6 mmol/L (4-12); Blood Urea Nitrogen 8 mg/dL (9-20); Calcium 8.9 mg/dL (8.4-10.2); Carbon Dioxide 27 mmol/L (22-30); Chloride 105 mmol/L (98-107); Estimated CRCL calculation 123 ml/min; Estimated Glomerular Filt Rate > 60; Glucose 97 mg/dL (65-110); Potassium 3.7 mmol/L (3.4-5.0); Sodium 138 mmol/L (137-145)
[2023-08-27 12:15] VITALS: BMI 23.3
--- NOTE | 2023-08-27 13:01 | PM.PNGS ---
Progress Note: A&P Assessment and Plan (1) Colorectal cancer: Code(s): C19 - Malignant neoplasm of rectosigmoid junction Status: Acute Assessment and Plan: Postop day 1 and doing well following hand assisted laparoscopic right hemicolectomy. Will advance to full liquids today. Decrease IV fluids to 60 mL/hr. Start increasing activity as tolerated, ambulate in the halls. Pathology pending. May be able to discharge in the next 1-2 days if he continues to do well. Plan I have discussed the patient's case and plan of care with Dr. Kowalski. Subjective Subjective Date/Time Seen: 08/27/23 10:01 Post Op day: 1 (Hand assisted laparoscopic right hemicolectomy with [id number] stapled ileocolic anastomosis) Patient reports: tolerating liquids well, voiding w/o difficulty, no flatus and no bowel movement Interval history: Patient tolerating clear liquids. No nausea or vomiting. Reports minimal bloating. Incisional pain being controlled with oral analgesics today. No flatus yet, but feels like he could start passing gas. Tolerating activity and ambulating in the halls this morning. Review of Systems Review of Systems: All systems reviewed & are unremarkable except as noted in HPI and below Exam Const: General: comfortable and no acute distress GI: Inspection: non-distended and incision (incisions dry and intact) GI Palp: Yes Soft to palpation, Yes Tenderness to palpation present (GI) (incisional) and No Guarding due to palpation present (GI) Auscultation: normal bowel sounds Neuro: General: moves all extremities and no focal motor deficits Extrem: General: no edema Objective Data Vital Signs Vital Signs: Vital Signs - 24 hr 08/26/23 13:26 08/26/23 14:24 08/26/23 20:50 Temperature 97.5 F L 97.7 F 97.7 F Pulse Rate 80 73 69 Respiratory Rate 18 18 16 Blood Pressure 116/68 114/63 106/51 L Pulse Oximetry 98 99 95 Oxygen Delivery 08/26/23 20:00 08/27/23 06:28 08/27/23 08:00 Temperature 97.1 F L Pulse Rate 60 Respiratory Rate 16 Blood Pressure 95/48 L Pulse Oximetry 97 Oxygen Delivery Room Air Room Air Intake/Output Intake/Output: Intake & Output 08/24/23 08/25/23 08/26/23 08/27/23 23:59 23:59 23:59 23:59 Intake Total 2980 1444 Balance 2980 1444 Meds/Results Medications: Active Medications Generic Name Dose Route Start Last Admin Trade Name Freq PRN Reason Stop Dose Admin Acetaminophen 1,000 mg 08/26/23 12:33 Acetaminophen 500 Mg Tablet PO Q6H PRN Mild Pain (1-3) or Fever Hydrocodone Bitart/Acetaminophen 1 tab 08/26/23 12:33 08/27/23 10:40 Hydrocodone/Acetaminophen (*Crx) 5-325 Mg Tablet PO 1 tab Q4H PRN Administration Pain Rated 4-6 Alvimopan 12 mg 08/26/23 21:00 08/27/23 08:06 Alvimopan 12 Mg Capsule PO 08/27/23 21:01 12 mg Q12HR MIYA Administration Ibuprofen 800 mg in 200 mls @ 400 mls/hr 08/26/23 14:00 08/27/23 05:06 Caldolor 800 Mg/200 Ml IVPB 400 mls/hr Q8H MIYA Administration Lactated Ringer's 1,000 mls @ 60 mls/hr 08/26/23 12:33 08/27/23 12:07 Lr - Lactated Ringers Iv IV CONT 60 mls/hr .[id number] MIYA Infusion Morphine Sulfate 4 mg 08/26/23 12:33 08/27/23 03:42 Morphine Sulfate (*Crx) 4 Mg/Ml Inj IV PUSH 4 mg Q4H PRN Administration Pain Rated 7-10 Ondansetron HCl 4 mg 08/26/23 12:33 Ondansetron Inj 4 Mg/2 Ml Vial IV PUSH Q4H PRN Nausea And Vomiting Pantoprazole Sodium 40 mg 08/27/23 09:00 08/27/23 08:06 Pantoprazole 40 Mg Tablet PO 40 mg QAM MIYA Administration Labs Labs: Laboratory Results - last 24 hr 08/27/23 08:59 Sodium 138 Potassium 3.7 Chloride 105 Carbon Dioxide 27 Anion Gap 6 BUN 8 L Creatinine 0.90 Estim Creat Clear Calc 123 Estimated GFR > 60 Glucose 97 Calcium 8.9
[2023-08-27 13:57] VITALS: BP 109/60; PULSE 80; RESP 18; TEMP 36.2; O2SAT 97
[2023-08-27 20:36] VITALS: BP 113/57; PULSE 71; RESP 16; TEMP 36.3; O2SAT 98
[2023-08-28] MEDS: LACTATED RINGERS 1,000 ML 60 ML IV CONT (04:23)
[2023-08-28] MEDS: HYDROcodone/acetaminophen (*CRX) 5-325 MG TABLET 1 TAB PO ×3 (04:24→13:37)
[2023-08-28 05:11] VITALS: BP 116/73; PULSE 62; RESP 16; TEMP 36.3; O2SAT 98
[2023-08-28] MEDS: IBUPROFEN IV 800 MG/200 ML 800 MG/200 ML BAG 400 MG IVPB (05:55)
[2023-08-28 06:30] LABS: Hematocrit 28.3 % (42.0-52.0); Hemoglobin 8.3 g/dL (14.0-18.0); Mean Corpuscular HGB Conc 29.3 g/dl (32-36); Mean Corpuscular Hemoglobin 21.8 pg (26-34); Mean Corpuscular Volume 74.5 fl (80-100); Mean Platelet Volume 9.6 fl (7.4-10.4); Platelet Count Result 382 k/mm3 (150-375); Red Cell Distribution Width 17.2 % (11.5-14.5); White Blood Count 10.5 K/mm3 (4.5-10.0)
[2023-08-28 06:57] LABS: Anion Gap 3 mmol/L (4-12); Blood Urea Nitrogen 6 mg/dL (9-20); Calcium 8.7 mg/dL (8.4-10.2); Carbon Dioxide 28 mmol/L (22-30); Chloride 107 mmol/L (98-107); Estimated CRCL calculation 138 ml/min; Estimated Glomerular Filt Rate > 60; Glucose 94 mg/dL (65-110); Potassium 3.6 mmol/L (3.4-5.0); Sodium 138 mmol/L (137-145)
[2023-08-28] MEDS: PANTOPRAZOLE 40 MG TABLET PO (09:25)
--- NOTE | 2023-08-28 10:00 | WPDPN ---
Progress Note: A&P Assessment and Plan (1) Colorectal cancer: Code(s): C19 - Malignant neoplasm of rectosigmoid junction Status: Acute Assessment and Plan: Patient is doing very well and has started having bowel movements. We will go ahead advance him to solid food today. Hep-Lock is IV and hopefully can be discharged home later today. Subjective Date/time seen: 08/28/23 10:00 Interval history: Patient is now postop day 2 after hand assisted laparoscopic right hemicolectomy for large cecal adenocarcinoma. He is doing very well today. Started having bowel movements last evening and continues to have bowel movements today. It is nonbloody. He has tolerated full liquids well. Pain is well controlled on [place] and IV ibuprofen. He is up walking around the hallways. Exam GI: Other: Abdomen is soft and nondistended. Incisions are all healing well without any redness or drainage. Expected mild tenderness to palpation of just around the incisions. Objective Data Vital Signs Vital Signs: Vital Signs - 24 hr 08/27/23 13:57 08/27/23 20:36 08/27/23 20:50 Temperature 36.2 C L 36.3 C L Pulse Rate 80 71 Respiratory Rate 18 16 Blood Pressure 109/60 113/57 L Pulse Oximetry 97 98 Oxygen Delivery Room Air 08/28/23 05:11 Temperature 36.3 C L Pulse Rate 62 Respiratory Rate 16 Blood Pressure 116/73 Pulse Oximetry 98 Oxygen Delivery Intake/Output Intake/Output: Intake & Output 08/25/23 08/26/23 08/27/23 08/28/23 23:59 23:59 23:59 23:59 Intake Total 2980 3560 440 Balance 2980 3560 440 Meds/Results Medications: Active Medications Generic Name Dose Route Start Last Admin Trade Name Freq PRN Reason Stop Dose Admin Acetaminophen 1,000 mg 08/26/23 12:33 Acetaminophen 500 Mg Tablet PO Q6H PRN Mild Pain (1-3) or Fever Hydrocodone Bitart/Acetaminophen 1 tab 08/26/23 12:33 08/28/23 09:34 Hydrocodone/Acetaminophen (*Crx) 5-325 Mg Tablet PO 1 tab Q4H PRN Administration Pain Rated 4-6 Ibuprofen 800 mg in 200 mls @ 400 mls/hr 08/26/23 14:00 08/28/23 06:25 Caldolor 800 Mg/200 Ml IVPB Infused Q8H MIYA Infusion Lactated Ringer's 1,000 mls @ 60 mls/hr 08/26/23 12:33 08/28/23 04:23 Lr - Lactated Ringers Iv IV CONT 60 mls/hr .[id number] MIYA Administration Morphine Sulfate 4 mg 08/26/23 12:33 08/27/23 03:42 Morphine Sulfate (*Crx) 4 Mg/Ml Inj IV PUSH 4 mg Q4H PRN Administration Pain Rated 7-10 Ondansetron HCl 4 mg 08/26/23 12:33 Ondansetron Inj 4 Mg/2 Ml Vial IV PUSH Q4H PRN Nausea And Vomiting Pantoprazole Sodium 40 mg 08/27/23 09:00 08/28/23 09:25 Pantoprazole 40 Mg Tablet PO 40 mg QAM MIYA Administration Labs Labs: Laboratory Results - last 24 hr 08/28/23 05:41 WBC 10.5 H RBC 3.80 L Hgb 8.3 L Hct 28.3 L MCV 74.5 L MCH 21.8 L MCHC 29.3 L RDW 17.2 H Plt Count 382 H MPV 9.6 Sodium 138 Potassium 3.6 Chloride 107 Carbon Dioxide 28 Anion Gap 3 L BUN 6 L Creatinine 0.80 Estim Creat Clear Calc 138 Estimated GFR > 60 Glucose 94 Calcium 8.7
[2023-08-28 14:00] VITALS: BP 115/71; PULSE 66; RESP 18; TEMP 36.3; O2SAT 100
--- NOTE | 2023-09-04 18:51 | PM.DS ---
DS: Admitting Diagnosis Discharge Date 08/28/23 Admitting Diagnosis Invasive cecal adenocarcinoma DS: Discharge Diagnosis Discharge Diagnosis (1) Colorectal cancer: Code(s): C19 - Malignant neoplasm of rectosigmoid junction Status: Acute DS: Summary Hospital Course Reason for hospitalization: invasive cecal adenocarcinoma Hospital Course: Patient came [facility] on August 26, 2023 to have resection of a large bulky tumor in the cecum which was previously biopsied on colonoscopy and confirmed to be invasive cecal adenocarcinoma. He had undergone a home bowel prep and he underwent a successful hand assisted laparoscopic right hemicolectomy. Postoperatively his course in the recovery room was uneventful and he went to the surgical floor for routine postoperative care. Will on the surgical floor received IV fluids overnight and started on some clear liquids. He tolerated this without difficulty and had no nausea or vomiting. He continued to get Entereg to preserve his GI function and avoid postoperative ileus. Narcotic use as a minimize by the use of scheduled IV ibuprofen. This combination of medications worked well as he started to have bowel movements on postoperative day 1. He was then advanced to full liquids and then a solid food diet by postoperative day 2. He was up walking around his room and in the hallway without difficulty. He only needed [place] for pain medication. His incisions were healing well without evidence of wound complications without redness or drainage. White blood cell count was normal and he had no fever. Postoperatively he had SCDs on while he was in bed and received subcutaneous Lovenox for DVT prophylaxis. He was discharged home on postoperative day 2. Having bowel movements and tolerating solid food. He was given postoperative instructions prior to leaving. Pathology results were still pending before he was discharged. Status at Discharge Functional status at discharge: independent ambulation Overall status at discharge: patient is progressing back to baseline Time Spent with Patient Time attestation: Total time spent providing and/or coordinating discharge services: Time spent: Less than 30 minutes Exam GI: Other: Abdomen is soft and nondistended. Midline port site incisions were healing well without any redness or drainage. Minor expected tenderness to palpation around the incisions. DS: Data Data Completed and Pending Completed studies during hospitalization: Pending at discharge 08/26/23 09:30 Surgical [PTH] Routine Pending studies at discharge: Pending at discharge 08/26/23 09:30 Surgical [PTH] Routine Discharge Plan Discharge Attending physician on discharge: Catracho Kowalski Consulting providers: Adriana Toscano; Albert Arce; Kerry Armstrong Discharging Clinician: Catracho Kowalski Patient Disposition: Home, Self-Care Activity: may shower Diet: as tolerated Discharge Instructions: May discharge home. No lifting more than 5 to 10 lb for the next 4 weeks. No driving for 1 week. Call office at [phone] for appointment to be seen in 2 weeks. May shower but no soaking the incision under water. Continue taking all usual home medications. Prescription for [place] will be sent to pharmacy. Patient may also take Tylenol and or ibuprofen [id number] as needed for pain. Patient Instructions: Antibiotic Form, How to Stop Smoking (DC), How to Stop Smoking (GEN), Cigarette Smoking and Your Health (GEN) Stand Alone Forms: General Discharge Information Follow-up/Referrals: Catracho Kowalski MD [Physician] - Discharge Medications: Continued pantoprazole [Protonix] 40 mg tablet,delayed release (DR/EC) 40 mg PO QAM Qty: 14 0RF hydrocodone-acetaminophen 5-325 mg tablet 1 tablet PO Q6H PRN (Reason: pain) Qty: 20 0RF No Action hydrocodone-acetaminophen 5-325 mg tablet 1 tablet PO Q6H PRN (Re
== END 2023-08-28 16:35 | disposition home or self-care (01) | DRG 330 ==
LOC: ANH3MEDSUR 12:49
PROVIDERS: Nurse Practitioner Family; Admitting Provider Surgery; Visit Provider Surgery
PROC: 0DTF4ZZ Resection of Right Large Intestine, Percutaneous Endoscopic Approach (ICD-10-PCS; CPT 44204; principal; 2023-08-26 07:30)
DX: C18.0 Malignant neoplasm of cecum (principal); C77.2 Secondary and unspecified malignant neoplasm of intra-abdominal lymph nodes; D50.9 Iron deficiency anemia, unspecified; Z80.0 Family history of malignant neoplasm of digestive organs
CPT/HCPCS: 36415; 80048; 85027; 88309; A9270; J0690; J1100; J1170; J1741; J1836; J1885; J2250; J2270; J2405; J2704; J3010; J7030; J7120

== ENCOUNTER 2023-09-22 09:51 | Outpatient (CLI) | payer OTHER, SELFPAY ==
[2023-09-22 10:16] LABS: Hematocrit 36.6 % (42.0-52.0); Hemoglobin 10.7 g/dL (14.0-18.0); Mean Corpuscular HGB Conc 29.2 g/dl (32-36); Mean Corpuscular Hemoglobin 21.4 pg (26-34); Mean Corpuscular Volume 73.1 fl (80-100); Platelet Count Result 413 k/mm3 (150-375); Red Blood Count 5.01 M/mm3 (4.6-6.20); Red Cell Distribution Width 18.1 % (11.5-14.5); White Blood Count 6.9 K/mm3 (4.5-10.0)
[2023-09-22 16:37] LABS: Alanine Aminotransferase 17 U/L (6-50); Albumin Level 4.7 g/dL (3.5-5.1); Alkaline Phosphatase 61 U/L (38-126); Anion Gap 6 mmol/L (4-12); Aspartate Amino Transferase 23 U/L (17-59); Bilirubin,Total 0.6 mg/dL (0.2-1.3); Blood Urea Nitrogen 8 mg/dL (9-20); Calcium 9.6 mg/dL (8.4-10.2); Carbon Dioxide 28 mmol/L (22-30); Chloride 105 mmol/L (98-107); Cholesterol 117 mg/dL (0-200); Estimated Glomerular Filt Rate > 60; Glucose 94 mg/dL (65-110); HDL Direct 54 mg/dL; Potassium 4.2 mmol/L (3.4-5.0); Sodium 139 mmol/L (137-145); Triglycerides 69 mg/dL (<150)
[2023-09-22 16:38] LABS: Iron 23 ug/dL (49-181)
[2023-09-22 16:48] LABS: LDL Cholesterol Direct 58 mg/dL
[2023-09-22 17:07] LABS: Thyroid Stimulating Hormone Reflex 0.755 uIU/mL (0.465-4.68)
[2023-09-22 17:11] LABS: Ferritin 3.96 ng/mL (17.9-464)
[2023-09-22 17:52] LABS: Folic Acid 6.9 ng/mL (2.76->20)
== END 2023-09-22 09:52 | disposition home or self-care (01) ==
LOC: ANHLAB 09:53
PROVIDERS: Nurse Practitioner Family; PCP Family Medicine; Visit Provider Internal Medicine Hematology & Oncology
DX: D50.9 Iron deficiency anemia, unspecified (principal); Z13.228 Encounter for screening for other metabolic disorders; Z13.220 Encounter for screening for lipoid disorders; E04.9 Nontoxic goiter, unspecified; Z13.29 Encounter for screening for other suspected endocrine disorder
CPT/HCPCS: 36415; 80053; 80061; 82607; 82728; 82746; 83540; 84443; 85027

== ENCOUNTER 2023-09-23 12:12 | Outpatient (CLI) | payer OTHER, SELFPAY ==
[2023-09-23 16:36] LABS: Appearance Urine Clear (Clear); Bilirubin Urine Negative (Negative); Blood Urine Negative (Negative); Color Urine Yellow (Yellow); Glucose Urine UA Negative (Negative); Ketones Urine Negative (Negative); Leukocyte Esterase Ur Negative LEU/UL (Negative); Nitrate Urine Negative (Negative); Protein Urine Negative (Negative); Specific Grav Ur 1.016 (1.001-1.035); pH Urine 8.5 (5.0-9.0)
[2023-09-23 16:48] LABS: Add Urine Microscopic? NO
[2023-09-23 18:07] LABS: Chlamydia trachomatis NOT DETECTED (NOT DETECTE); Neisseria gonorrhoeae PCR NOT DETECTED (NOT DETECTE)
== END 2023-09-23 12:13 | disposition home or self-care (01) ==
LOC: ANHLAB 12:14
PROVIDERS: PCP Family Medicine; Visit Provider Internal Medicine Hematology & Oncology
DX: C18.2 Malignant neoplasm of ascending colon (principal); C77.2 Secondary and unspecified malignant neoplasm of intra-abdominal lymph nodes
CPT/HCPCS: 81003; 87086; 87491; 87591

== ENCOUNTER 2023-09-28 16:23 | Outpatient (CLI) | payer OTHER, SELFPAY ==
[2023-09-28 17:26] LABS: INR 1.2; Prothrombin Time 15.6 Seconds (11.1-14.7)
[2023-09-28 17:27] LABS: Partial Thromboplastin Time 28.1 Seconds (22.3-36.8)
== END 2023-09-28 16:24 | disposition home or self-care (01) ==
LOC: ANHLAB 16:25
PROVIDERS: PCP Family Medicine; Visit Provider Surgery
DX: Z01.818 Encounter for other preprocedural examination (principal); C18.2 Malignant neoplasm of ascending colon; C77.2 Secondary and unspecified malignant neoplasm of intra-abdominal lymph nodes
CPT/HCPCS: 36415; 85610; 85730

== ENCOUNTER 2023-09-30 14:27 | Outpatient (CLI) | payer OTHER, SELFPAY ==
--- NOTE | ~2023-09-30 | CT_ITS ---
Clinical Indication: Colon cancer CT Scan of the Chest with Contrast: Technique: Contiguous sections were acquired throughout the chest after intravenous administration of 75 cc of Omnipaque 350. Dose reduction technique was used on this scan by utilizing automated exposu re control and iterative reconstruction technique. The dose-length product (DLP) was 259.03 mGy-cm. Findings: There is no evidence of any significant mediastinal, hilar or axillary lymphadenopathy. Mediastinal. Soft tissues and vascular structures are unremarkable. There is no evidence of pleural or pericardial effusion. 3 mm right upper lobe pulmonary nodules are noted (axial images 63, 64). Images through the upper abdomen reveal no abnormalities. Impression: 2 distinct 3 mm right upper lobe pulmonary nodules, as detailed above. Given history, these are indet erminate and continued follow-up is advised. Reviewed, dictated and finalized at location M. Impression: 2 distinct 3 mm right upper lobe pulmonary nodules, as detailed above. Given hi story, these are indeterminate and continued follow-up is advised.
== END 2023-09-30 14:28 | disposition home or self-care (01) ==
PROVIDERS: PCP Family Medicine; Visit Provider Internal Medicine Hematology & Oncology
DX: C18.6 Malignant neoplasm of descending colon (principal); R91.8 Other nonspecific abnormal finding of lung field
CPT/HCPCS: 71260; Q9967

== ENCOUNTER 2023-10-01 02:45 | Day surgery (SDC) | payer OTHER, SELFPAY ==
[2023-09-23 14:59] VITALS: BMI 23.1
--- NOTE | 2023-09-23 15:00 | PC.NURSE ---
Report to the Outpatient Waiting Room, entrance under the green pavilion located off [facility], at time _1000_ on date _[id number]_. Planned Procedure Time: _1200_. Time changes happen often and if your time is changed the preop area will call you the afternoon before. - You and your visitor will be asked to self-screen and do not enter if you have any COVID symptoms. - A mask is optional within the hospital at this time. Patients may have clear liquids (water, carbonated beverages, clear teas, apple juice) until 3 hours prior to surgery with a maximum of 20 ounces. - No food from midnight until time of surgery Take the following medications with a SIP of water the morning of surgery: __Pain pill if needed. DO NOT STOP ANY OF YOUR OTHER PRESCRIPTION MEDICATIONS PRIOR TO SURGERY ?EXCEPT THE FOLLOWING Medications to discontinue per physician None Date to take last dose Please no make-up, nail vietnamese, hairspray, perfume, deodorant, or body powder the day of surgery. No jewelry (including any body piercings) or valuables the day of surgery, leave them at home. Please take a shower or bath the night before, or the morning of, surgery with an antibacterial soap. Wear comfortable, loose fitting clothing. - Jewelry must be removed prior to entering the operating room. Rings and piercings that are not removed may be cut off. - The hospital will not accept responsibility for valuables. - Please leave all valuables, including medications, at home the day of surgery. If you are going home after surgery, a licensed skip load driver must drive you home. - NO public transportation without another adult if you receive anesthesia. - We recommend that an adult stay with you for 24 hours following discharge. - We also recommend that you do not drive, make important decision, drink alcoholic beverages, or take any drugs that were not prescribed by your health care provider for at least 24 hours after your discharge time. Follow any additional instructions given to you from your surgeon. If you or anyone in your household have experienced Covid symptoms in the past week, please notify your surgeon or the nurse liaison at the phone number below for possible testing. Telephone instructions given to _Brad__and asked if any additional questions and then verbalized understanding. Patient advised to call surgeon office or pre surgery nurse liaison [phone] if any additional questions.
--- NOTE | ~2023-10-01 | XR_ITS ---
EXAMINATION: XR fl guide central line place DATE: 10/01/2023 12:42 INDICATION: Port placement. TECHNIQUE: 2 intraoperative fluoroscopic views of the chest were obtained. I was not present. Fluoros copy exposure time was 25 seconds. COMPARISON: Chest CT 09/30/2023 FINDINGS: There is a right chest port with tip in superior vena cava. IMPRESSION: 1. Port tip in superior vena cava. Reviewed, dictated and finalized at location A.
--- NOTE | ~2023-10-01 | XR_ITS ---
EXAMINATION: XR chest port-a-cath/central DATE: 10/01/2023 13:15 INDICATION: Port placement. TECHNIQUE: A single frontal view of the chest was obtained on 2 radiographs. COMPARISON: Chest CT 09/30/2023 FINDINGS: There is no pneumonia, pleural effusion, or pneumothorax. The heart size is normal. There i s a right internal jugular port with tip in superior vena cava. IMPRESSION: 1. Port tip in superior vena cava. Reviewed, dictated and finalized at location A.
[2023-10-01 10:45] VITALS: BP 122/63; PULSE 58; TEMP 36.6; O2SAT 100
--- NOTE | 2023-10-01 11:40 | PM.IMHP ---
H&P: HPI History of Present Illness Date/Time: 10/01/23 11:40 Chief Complaint: Colon CA Narrative: Pt had hand assisted right hemicolectomy recently for large cecal adenoCA. + regional lymph nodes and pt is going to get chemotherapy. Never had port in the past. Review of Systems Review of Systems: The remainder of the review of systems to include constitutional, HEENT, cardiovascular, respiratory, GI, , integumentary, musculoskeletal, endocrine, immunologic, hematologic, psychiatric, and neurologic are all negative except for which is mentioned above in the HPI. [facility] Past Medical History Medical History Abdominal pain Abnormal computed tomography of abdomen and pelvis Colitis Colorectal cancer Mass of cecum Right lower quadrant pain Surgical History Surgical History History of hemicolectomy Hand assisted laparoscopic right hemicolectomy with [id number] stapled ileocolic anastomosis 08/26/23 Family History Family History Mother Breast cancer Father Colon cancer Alcoholism Sibling Breast cancer Grandparent Lung cancer Social History Social History Social History: Surrogate medical decision maker: Chastity Martin, sister. Code status: Full code. Smoking packs per day: 1 Smoking cigarettes per day: 20.0 Years smoked: 20 Smoking pack-years: 20.00 Smoking status: Former smoker Tobacco type: e-cigarettes/vaping Second hand tobacco smoke exposure: Yes Smoking end date: 09/14/22 Alcohol intake: current Drinks per week: 5 Substance use: current Substance use type: marijuana Other substance usage details: daily Last use: 08/25/23 Do You Feel Safe in your Home?: Yes Lack of Transportation: No Lack of Food: Never True Current Housing: I Have Housing Concerned About Future Housing: No Difficulty Paying Gas/Electric Bills: No Difficulty Paying for Meds: No Currently Unemployed: No Education: High School Diploma/GED Difficulty w/ Childcare or Family Care: No Living arrangements: with family Additional living arrangements comments: Lives in his own home in [place]. Not , no children. Occupation/Education: occupation Spiritual care concerns: No Meds Home Medications and Allergies Home Medications Medication Instructions Recorded Confirmed Type ferrous sulfate 325 mg (65 mg 325 mg PO DAILY #30 tabs 09/25/23 Rx iron) tablet Allergies Allergy/AdvReac Type Severity Reaction Status Date / Time Sulfa (Sulfonamide Allergy Unknown HIVES Verified 09/23/23 14:52 Antibiotics) Vital Signs Vital Signs - 24 hr 10/01/23 10:45 Temperature 36.6 C Pulse Rate 58 L Blood Pressure 122/63 Pulse Oximetry 100 Oxygen Delivery Room Air Exam Const: General: comfortable and no acute distress HENMT: Ears: TM's normal bilaterally Face/Nose/Sinus: Normal nares present Mouth: Yes moist mucous membranes Eyes: General: appearance normal, both eyes and all related structures Sclera: sclerae normal Pupils: Equal, round and reactive pupils present Neck: Neck: supple and no JVD Resp: Effort & Inspection: normal respiratory effort Auscultation: clear to auscultation bilaterally Cardio: Rate: regular rate Rhythm: regular rhythm GI: GI Palp: Yes Soft to palpation, No Firmness to palpation present (GI), No Tenderness to palpation present (GI), No Guarding due to palpation present (GI) and No Hernia present Other: Well healed port site and infraumbilical scars. No masses. Skin: General skin exam: normal color and no rashes or lesions noted Neuro: General: gait normal Speech: normal speech Motor exam (neuro): 5/5 motor strength present throughout Extrem: General: normal to
--- NOTE | 2023-10-01 11:44 | WPDHPUPDATE1 ---
History and Physical Update Update Date/Time: 10/01/23 11:44 History and Physical has been reviewed, including an updated exam of the patient. There are NO changes in the patient's condition. Risks, benefits, and alternatives have been discussed and questions answered. Patient agrees to proceed with procedure.
[2023-10-01] MEDS: LACTATED RINGERS 1,000 ML 30 ML IV CONT ×2 (11:50→13:05)
--- NOTE | 2023-10-01 11:51 | WPDANESEPPF ---
Anes - Initial Pre Proc Eval Procedure: Operation Date: 10/01/23 12:00 Proposed Procedures p Insertion [place] Cath - Catracho Kowalski MD Date/Time: 10/01/23 11:51 Surgeon: Catracho Kowalski MD Pre Op Diagnosis: descending colon cancer Patient Data Age: 37 Gender: M Height: 1.93 m Weight: 86.4 kg Last Vital Signs Temp 97.9 F 10/01/23 10:45 Pulse 58 L 10/01/23 10:45 BP 122/63 10/01/23 10:45 Pulse Ox 100 10/01/23 10:45 O2 Del Method Room Air 10/01/23 10:45 Allergies Allergy/AdvReac Type Severity Reaction Status Date / Time Sulfa (Sulfonamide Allergy Unknown HIVES Verified 09/23/23 14:52 Antibiotics) Home Medications Medication Instructions Recorded Confirmed Type ferrous sulfate 325 mg (65 mg 325 mg PO DAILY #30 tabs 09/25/23 Rx iron) tablet Patient hx anesthesia problems: none Family hx anesthesia problems: none Results Review: All pre-operative results and documents have been reviewed as part of the pre-operative evaluation. [facility] Past Medical History Medical History Abdominal pain Abnormal computed tomography of abdomen and pelvis Colitis Colorectal cancer Mass of cecum Right lower quadrant pain Surgical History Surgical History History of hemicolectomy Hand assisted laparoscopic right hemicolectomy with [id number] stapled ileocolic anastomosis 08/26/23 Family History Family History Mother Breast cancer Father Colon cancer Alcoholism Sibling Breast cancer Grandparent Lung cancer Social History Social History Social History: Surrogate medical decision maker: Chastity Martin, sister. Code status: Full code. Smoking packs per day: 1 Smoking cigarettes per day: 20.0 Years smoked: 20 Smoking pack-years: 20.00 Smoking status: Former smoker Tobacco type: e-cigarettes/vaping Second hand tobacco smoke exposure: Yes Smoking end date: 09/14/22 Alcohol intake: current Drinks per week: 5 Substance use: current Substance use type: marijuana Other substance usage details: daily Last use: 08/25/23 Do You Feel Safe in your Home?: Yes Lack of Transportation: No Lack of Food: Never True Current Housing: I Have Housing Concerned About Future Housing: No Difficulty Paying Gas/Electric Bills: No Difficulty Paying for Meds: No Currently Unemployed: No Education: High School Diploma/GED Difficulty w/ Childcare or Family Care: No Living arrangements: with family Additional living arrangements comments: Lives in his own home in [place]. Not , no children. Occupation/Education: occupation Spiritual care concerns: No Anes - Eval Final PreProcedure Day of Procedure 10/01/23 11:51 Patient weight: normal Heart: regular rate and rhythm Lungs: clear to auscultation Airway: Mallampati scale class II Neurological: alert and oriented Last oral intake: >/= 8 hours ASA classification: III Emergent: no Anesthetic plan: proceed Anesthesia type and monitoring: general GIVS (may use LMA) and standard monitoring Results Review: All pre-operative results and documents have been reviewed as part of the pre-operative evaluation. Informed Consent: The patient's anesthetic plan and its attendant risks and benefits were discussed with the patient/family/POA. Questions were solicited and answers provided to the satisfaction of the patient/family/POA.
[2023-10-01] MEDS: ceFAZolin 2 GM/D5W 50 ML 2 GM/50 ML BAG IVPB (11:55)
[2023-10-01] MEDS: LIDO 1%/EPINEPHRINE/PF 1:200,000 30 ML VIAL 5 ML XX (12:33)
[2023-10-01] MEDS: BUPivacaine HCL 0.5% 10 ML AMP 5 ML INFILTRATE (12:34)
--- NOTE | 2023-10-01 12:56 | W.PM.PROC2 ---
Procedure Note - Detailed Date of Procedure 10/01/23 Pre-op Diagnosis Right colon cancer Post-op Diagnosis Same Procedure Performed Placement of right internal jugular vein single-lumen port a catheter with intraoperative fluoroscopy. Surgeon Catracho Kowalski MD [employer] Marcus Anaya, DOCUMENT CONTROL ASSOCIATE Anesthesia MAC Indications patient is a 37-year-old male who about a month ago underwent a right hemicolectomy for a very large cecal cancer. This turned out to be invasive adenocarcinoma with multiple regional lymph nodes which were positive. He is under chemotherapy treatment presents now for placement boni catheter for administration of chemotherapy. Findings None significant Description of Procedure After informed consent was obtained patient brought to the operating room was placed supine position and IV sedation was administered. The bilateral upper anterior and neck and chest was then prepped in usual sterile fashion. A time-out was then performed correctly identifying the patient as well as procedure to be performed. He was given perioperative IV antibiotics. He was then placed in the head-down Trendelenburg position. 1% lidocaine mixed with 0.5% Marcaine was injected between the 2 heads of the right sternocleidomastoid muscle. A long 18gauge needle was then used to cannulate the right internal jugular vein on the 1st pass without difficulty. There was prompt return of dark venous appearing blood. I then advanced a guidewire through the needle and placed down into the right atrium of the heart. Intraoperative fluoroscopy was used to verified proper placement of the tip of the guidewire. I then injected more local anesthetic mixture just below the medial 3rd of the right clavicle. A transverse incision was then made this area the scalpel and then dissection carried down through subcu tissues. I then created a subcutaneous port pocket below the incision utilizing blunt finger electrocautery dissection. Then enlarged the right neck incision at the skin with a scalpel. A 9.6 Afghan single-lumen catheter was then tunneled between the chest incision and neck incision. A dilator breakaway sheath was advanced over the guidewire and the dilator and guidewire removed leaving the sheath in place. The catheter was then advanced through the sheath into the right internal jugular vein and subsequently down into right atrium of the heart. The sheath was then torn away leaving the catheter in place. Once again utilizing intraoperative fluoroscopy visualized tip of the catheter and then pulled back on the catheter until the tip was in the distal superior vena cava. The catheter was then cut to the appropriate length the skin level and attached to the Smart Port. The port was then secured in the subcutaneous port pocket on 3 opposite sides of 3-0 Prolene suture. It was then accessed and aspirated blood easily and flushed with heparinized saline solution. I then irrigated out the incision sterile saline solution hemostasis was good. I then close incision utilizing interrupted 3-0 Vicryl sutures subcutaneous tissues and skin edges were approximated utilizing a running subcuticular 4-0 Monocryl suture incision. The incision was then cleaned and skin glue was applied. A 4 Monocryl suture was used to close the small neck incision. Skin glue was applied to the incision as well. Lastly the port was accessed percutaneously and it aspirated blood easily and was flushed with 5000units of IV heparin. The patient tolerated the procedure well no complications. All sponges, needles, and instrument counts were correct at the end procedure. EBL was _15__cc. The patient was awakened and taken to recovery in stable and satisfactory condition. Portable chest x-ray is pending at time of dictation. Implants 9.6 Afghan silastic single-lumen catheter attached to Smart Port. Estimated Blood Loss 15 Drains No Packing No Pathology None sent Complications No immediate
[2023-10-01 13:05] VITALS: BP 109/69; PULSE 75; RESP 18; O2SAT 97
[2023-10-01 13:30] VITALS: BP 108/64; PULSE 62; RESP 20
[2023-10-01 14:00] VITALS: BP 108/64; PULSE 60; RESP 20
== END 2023-10-01 14:04 | disposition home or self-care (01) ==
PROVIDERS: PCP Nurse Practitioner Family; Visit Provider Surgery
PROC: (CPT 36561; principal; 2023-10-01 12:00)
DX: C18.0 Malignant neoplasm of cecum (principal); C77.2 Secondary and unspecified malignant neoplasm of intra-abdominal lymph nodes; Z90.49 Acquired absence of other specified parts of digestive tract; Z98.0 Intestinal bypass and anastomosis status; Z87.891 Personal history of nicotine dependence; F12.90 Cannabis use, unspecified, uncomplicated
CPT/HCPCS: 36561; 36415; 77001; 85610; 85730; C1788; J0690; J1100; J1596; J1644; J2250; J2371; J2405; J2704; J7030; J7120

== ENCOUNTER 2023-10-06 07:52 | Outpatient (CLI) | payer OTHER, SELFPAY | END 2023-10-06 07:53 | disposition home or self-care (01) | LOC: ANHAUDASC 07:53 | PROVIDERS: PCP Family Medicine; Visit Provider Nurse Practitioner Family | DX: H90.42 Sensorineural hearing loss, unilateral, left ear, with unrestricted hearing on the contralateral side (principal); H93.13 Tinnitus, bilateral | CPT/HCPCS: 92557; 92567 ==

== ENCOUNTER 2023-12-29 07:41 | Outpatient (CLI) | payer OTHER, SELFPAY ==
--- NOTE | ~2023-12-29 | CT_ITS ---
EXAMINATION: CT abdomen pelvis w con DATE: 12/29/2023 08:07 INDICATION: Malignant neoplasm in ascending colon. TECHNIQUE: Computed tomography (CT) of the abdomen and pelvis was performed with 100 mL Omnipaque 350 intravenous contrast. Automated exposure control and iterative reconstruction technique were employe d. The dose-length product was 395.19 mGy-cm. COMPARISON: CT abdomen and pelvis 08/11/2023 FINDINGS: The visualized portions of the lung bases demonstrate mild atelectasis. No pleural effusion . The heart size is normal. No pericardial effusion. The liver, gallbladder, spleen, pancreas, adrena l glands, and kidneys are normal. There is a transient jejunal intussusception. There are changes of right hemicolectomy. There are no dilated loops of bowel. There are no pathologically enlarged lymph nodes. There is no free intraperitoneal fluid. The bones are unremarkable. IMPRESSION: 1. No evidence of metastatic disease. Reviewed, dictated and finalized at location A.
== END 2023-12-29 07:42 | disposition home or self-care (01) ==
PROVIDERS: PCP Nurse Practitioner Family; Visit Provider Internal Medicine Hematology & Oncology
DX: C18.6 Malignant neoplasm of descending colon (principal)
CPT/HCPCS: 74177; Q9967

== ENCOUNTER 2024-04-20 08:50 | Outpatient (CLI) | payer OTHER, SELFPAY ==
--- NOTE | ~2024-04-20 | CT_ITS ---
Clinical Indication: Colon cancer CT Scan of the Chest, Abdomen, and Pelvis with Contrast: Technique: Contiguous sections were acquired throughout the chest, abdomen, and pelvis after intraven ous administration of 100 cc of Omnipaque 350. Dose reduction technique was used on this scan by uti dianeing automated exposure control and iterative reconstruction technique. The dose-length product (DL P) was 712.90 mGy-cm. Comparison: 12/29/2023 Findings: There is no evidence of any significant mediastinal, hilar or axillary lymphadenopathy. The mediastin al soft tissues appear normal. There is no evidence of pleural or pericardial effusion. The lungs are clear, aside from mild right basilar atelectatic change. The liver, spleen, pancreas, gallbladder, adrenals and kidneys are within normal limits. No evidence of aortic aneurysm. No lymphadenopathy. No bowel obstruction or bowel wall thickening. Evidence of prior partial right colectomy. Urinary bladder is unremarkable. No pelvic mass seen. No ascites. Impression: No evidence for active malignancy or metastatic disease. Postoperative change, as above. Reviewed, dictated and finalized at location . M DOOR MAKER Impression: No evidence for active malignancy or metastatic disease. Postoperative change, as above.
== END 2024-04-20 08:51 | disposition home or self-care (01) ==
PROVIDERS: PCP Nurse Practitioner Family; Visit Provider Internal Medicine Hematology & Oncology
DX: C18.6 Malignant neoplasm of descending colon (principal)
CPT/HCPCS: 71260; 74177; Q9967

== ENCOUNTER 2025-02-24 13:19 | Outpatient (CLI) | payer OTHER, SELFPAY ==
--- NOTE | ~2025-02-24 | CT_ITS ---
CT abdomen pelvis w con INDICATION:MAL LANI OF DESCENDING COLON . STAGING COMPARISON: 04/20/2024 TECHNIQUE: Axial images of the abdomen and pelvis were obtained following infusion of 100 mL Isovue 300. Dose optimization technique was utilized. FINDINGS: The lung bases are clear. The liver parenchyma is unremarkable. No intrahepatic mass or ductal dilatation is evident. The gallbladder is unremarkable. The pancreas and spleen are normal in appearance. The adrenal glands are symmetric in size. The kidneys demonstrate symmetric uptake and excretion of contrast. No cystic mass is evident. There is no solid mass. There is no hydronephrosis. There is small bowel intussusception within the left abdomen seen axial images 112 through 129 and coronal images 35 through 48. There are no bowel obstruction. Surgical sutures are noted at the cecum. There is colonic diverticulosis without evidence of acute diverticulitis. The bladder and rectum are normal. No free intraperitoneal fluid or air is evident. There is no significant retroperitoneal lymphadenopathy. The aorta, visceral vessels and renal arteries demonstrate normal caliber and patency. The lower thoracic and lumbar vertebrae are in normal alignment. IMPRESSION: No evidence of recurrent or metastatic disease. Mild small bowel intussusception within the left abdomen as detailed above. No bowel obstruction. All CT scans at this facility are performed using low dose modulation techniques as appropriate to perform exam including the following: automated exposure control; use of iterative reconstruction technique; adjustment of the mA and/or kV according to patient size (this includes techniques or standardized protocols for targeted exams where dose is matched to indication/reason for exam). Reviewed, dictated and finalized at location S. IMPRESSION: No evidence of recurrent or metastatic disease. Mild small bowel intussusception within the left abdomen as detailed above. No bowel obstruction. All CT scans at this facility are performed using low dose modulation techniqu es as appropriate to perform exam including the following: automated exposure c ontrol; use of iterative reconstruction technique; adjustment of the mA and/or kV according to patient size (this includes techniques or standardized protocol s for targeted exams where dose is matched to indication/reason for exam).
--- OUTSIDE RECORDS SUMMARY | 2025-02-24 13:26 | XMS_ITS | Encounter Summary ---
Author Organization [facility] [employer] Address [address] [place] [address] Care Team Providers Care Retail Planning Manager Name Role Phone Munir Winters MD Primary Care Provider [phone] Encounter Details Date Type Department Care Team ([facility] Contact Info) Description 02/20/2025 Orders Only [facility] Oncology and Hematology [facility] [address] [place] [address] Gilson Lai MD [address] [place], [place] [address] [address] [place] [phone] Social History Tobacco Use Types Packs/Day Years Used Date Smoking Tobacco: Former Cigarettes 1 20 2 003 - 2022 Smokeless Tobacco: Never Alcohol Use Standard Drinks/Week Comments Yes 0 (1 standard drink = 0.6 oz pur e alcohol) Sex and Gender Information Value Date Recorded Sex Assigned at Not on file Legal Sex Male 8:05 AM CDT Gender Identity Not on file Sexual Orientation Not on file documented as of this encounter Plan of Treatment Upcoming Encounters Date Type Department Care Team (Late Contact Info) Description 03/03/2025 12:00 PM CDT Office Visit [facility] Oncology and Hematology [address] [place] [address] Gilson Lai MD [address] [place] [address] [employer] [address] [place] [phone] documented as of this encounter Procedures Procedure Name Priority Date/Time Associated Diagnosis Comments COMPREHENSIVE METABOLIC PANEL Routine 02/10/2025 11:27 AM CDT CBC WITH AUTODIFFERENTIAL Routine 2024 11:22 AM CDT documented in this encounter Results * COMPREHENSIVE METABOLIC PANEL (02/10/2025 11:27 AM CDT) Blood us Gilson Lai MD CHEMISTRY ORDERABLES Final Resu lt * CBC WITH AUTODIFFERENTIAL (02/10/2025 11:22 AM CDT) Blood us Gilson Lai MD HEMATOLOGY ORDERABLES Final Res ult documented in this encounter Visit Diagnoses Not on filedocumented in this encounter Care Teams Retail Planning Manager Relationship Specialty Start Date End Date Munir Winters MD [address] [place] [id number] PCP - General Family Practice 09/22/23 documented as of this encounter
--- OUTSIDE RECORDS SUMMARY | 2025-02-24 13:27 | XMS_ITS | Clinical Summary ---
Author Organization [facility] Address [address] [place] [address] Care Team Providers Care Computing Tutor Name Role Phone Munir Winters MD Primary Care Provider [phone] Allergies Active Allergy Reactions Criticality Noted Date Comments Sulfa (Sulfonamide Antibiotics) Rash Low 09/08 Medications HYDROcodone-ac etaminophen (NORCO) 5-325 mg tablet Take 1 Tablet by mouth every 4 hours as needed for Pain, Moderate. Active traMADoL (ULTRAM) 50 mg tabletIndicati ons:Malignant neoplasm of descending colon (CMS/HCC) Take 1 Tablet (50 mg) by mouth every 8 hours as needed for Pain. 15 Tablet 4 Active lidocaine-pril ocaine (EMLA) 2.5-2.5 % Cream Apply to affected area see administration instructions. 30 Gram 1 4 Active ondansetron (ZOFRAN) 8 mg Tablet Take 1 Tablet (8 mg) by mouth every 8 hours as needed for Nausea/Emesis. 30 Tablet 1 4 Active ondansetron (ZOFRAN ODT) 8 mg Tablet, Rapid Dissolve Dissolve 1 tablet on top of tongue then swallow with saliva every 8 hours as needed for nausea or vomiting 30 Tablet 1 4 Active loperamide (IMODIUM) 2 mg capsule Take 2 mg by mouth every 3 hours as needed for Diarrhea/Loose Stools. Active ferrous sulfate 325 mg (65 mg iron) tablet Take 1 tablet by mouth BID. 60 Tablet 2 4 Active Active Problems No known active problems Encounters Date Type Department Care Team Description 02/20/2025 Orders Only [facility] Oncology and Hematology - [address] [place] [address] Gilson Lai MD 02/09/2025 Telephone [facility] Oncology and Hematology [facility] [address] [place] [address] Gilson Lai MD labs for appt 12/28/2024 External Device Data [facility] ABSTRACTION Provider, Abstract 12/20/2024 External Device Data [facility] ABSTRACTION Provider, Abstract from Last 3 Months Family History Medical History Relation Name Comments Colon Cancer Father Breast Cancer Mother Breast Cancer Sister Relation Name Status Comments Father Mother Sister Alive Social History Tobacco Use Types Packs/Day Years Used Date Smoking Tobacco: Former Cigarettes 1 20 2 - 2022 Smokeless Tobacco: Never Tobacco Cessation:Counseling Given: Not Answered Alcohol Use Standard Drinks/Week Comments Yes 0 (1 standard drink = 0.6 oz pur e alcohol) Sex and Gender Information Value Date Recorded Sex Assigned at Not on file Legal Sex Male 8:05 AM CDT Gender Identity Not on file Sexual Orientation Not on file Last Filed Vital Signs Vital Sign Reading Time Taken Comments Blood Pressure 117/78 09/30/2024 9:05 AM CDT Pulse 66 09/30/2024 9:05 AM CDT Temperature 36.4 C (97.6 F) 09/30/2024 9:05 AM CDT Respiratory Rate 16 09/30/2024 9:05 AM CDT Oxygen Saturation 98% 09/30/2024 9:05 AM CDT Inhaled Oxygen Concentration - - Weight 86.2 kg (190 lb) 09/30/2024 9:05 AM CDT Height 193 cm (6' 4) 09/22/2023 8:56 AM CDT Body Mass Index 23.13 09/22/2023 8:56 AM CDT Plan of Treatment Upcoming Encounters Date Type Department Care Team (Late st Contact Info) Description 03/03/2025 12:00 PM CDT Office Visit [facility] Oncology and Hematology [facility] [address] [place] [address] Gilson Lai MD [address] [place] [address] Health Maintenance Due Date Last Done Comments DTAP/TDAP/TD VACCINES (1 - Tdap) 10/04/2006 HEPATITIS B VACCINES (1 of 3 - 19+ 3-dose series) 09/09 HPV VACCINES (1 - 3-dose SCDM series) 10/04/2014 INFLUENZA VACCINE (#1) 2024 Procedures Procedure Name Priority Date/Time Associated Diagnosis Comments COMPREHENSIVE METABOLIC PANEL Routine 02/10/2025 11:27 AM CDT CBC WITH AUTODIFFERENTIAL Routine 2024 11:22 AM CDT from Last 3 Months Results * COMPREHENSIVE METABOLIC PANEL (02/10/2025 11:27 AM CDT) Blood us Gilson Lai MD CHEMISTRY ORDERABLES Final Resu lt * CBC WITH AUTODIFFERENTIAL (02/10/2025 11:22 AM CDT) Blood us Gilson Lai MD HEMATOLOGY ORDERABLES Final Res ult from Last 3 Months Insurance [facility] [id number] Care Teams Computing Tutor Relationship Specialty Start Date End Date Munir Wintesr MD [address] [place] [id number] PCP - General Family Practice 09/22/23
== END 2025-02-24 13:20 | disposition home or self-care (01) ==
PROVIDERS: PCP Nurse Practitioner Family; Visit Provider Internal Medicine Hematology & Oncology
DX: K56.1 Intussusception (principal); C18.6 Malignant neoplasm of descending colon
CPT/HCPCS: 74177; Q9967

== ENCOUNTER 2025-03-13 01:20 | Day surgery (SDC) | payer OTHER, SELFPAY ==
[2025-03-10 08:22] VITALS: BMI 24.9
[2025-03-13 08:49] VITALS: BP 128/78; PULSE 81; RESP 18; TEMP 36.5; O2SAT 100; BMI 24.9
[2025-03-13] MEDS: LACTATED RINGERS 1,000 ML 150 ML IV CONT (08:59)
--- NOTE | 2025-03-13 09:19 | P.PNAN_ITS ---
Anes - Initial Pre Proc Eval Procedure: Operation Date: 03/13/25 10:30 Proposed Procedures p Diagnostic Colonoscopy - Carlos Alberto Yepez MD Date/Time: 03/13/25 09:19 Surgeon: Carlos Alberto Yepez MD Pre Op Diagnosis: Malignant neoplasm of descending colon Patient Data Age: 39 Gender: M Height: 1.93 m Weight: 92.8 kg Last Vital Signs Temp 36.5 C 03/13/25 08:49 Pulse 81 03/13/25 08:49 Resp 18 03/13/25 08:49 BP 128/78 03/13/25 08:49 Pulse Ox 100 03/13/25 08:49 O2 Del Method Room Air 03/13/25 08:49 Allergies Allergy/AdvReac Type Severity Reaction Status Date / Time Sulfa (Sulfonamide Allergy Unknown HIVES Verified 03/13/25 08:45 Antibiotics) Home Medications ?Medication ?Instructions ?Recorded ?Confirmed ?Type No Home Medications 03/10/25 03/10/25 H istory Patient hx anesthesia problems: none Family hx anesthesia problems: none Results Review: All pre-operative results and documents have been reviewed as part of the pre- operative evaluation. [facility] Past Medical History Medical History Encounter for surgical aftercare following surgery on the digestive system Former cigarette smoker Cancer of ascending colon metastatic to intra-abdominal lymph node Colorectal cancer Colitis Abdominal pain Right lower quadrant pain Abnormal computed tomography of abdomen and pelvis Mass of cecum Surgical History Surgical History H/O abdominal surgery History of hemicolectomy Hand assisted laparoscopic right hemicolectomy with [id number] stapled ileocolic anastomosis 08/26/23 Family History Family History Mother Breast cancer Father Colon cancer Alcoholism Sibling Breast cancer Grandparent Lung cancer Social History Social History Social History: Surrogate medical decision maker: Chastity Martin, sister. Code status: Full code. Smoking packs per day: 1 Smoking cigarettes per day: 20.0 Years smoked: 20 Smoking pack-years: 20.00 Smoking status: Current every day smoker Tobacco type: e-cigarettes/vaping Second hand tobacco smoke exposure: Yes Smoking end date: 09/14/22 Additional smoking assessment comments: vape Alcohol intake: current Drinks per week: 6 Substance use: current Substance use type: does not use Other substance usage details: daily Last use: 08/25/23 Do You Feel Safe in your Home?: Yes Lack of Transportation: No Lack of Food: Never True Current Housing: I Have Housing Concerned About Future Housing: No Difficulty Paying Gas/Electric Bills: No Difficulty Paying for Meds: No Currently Unemployed: No Education: High School Diploma/GED Difficulty w/ Childcare or Family Care: No Living arrangements: alone Additional living arrangements comments: Lives in his own home in [place]. Not , no children. Occupation/Education: occupation Spiritual care concerns: No Anes - Eval Final PreProcedure Day of Procedure 03/13/25 09:19 Patient weight: normal Heart: regular rate and rhythm Lungs: decreased breath sounds Airway: Mallampati scale class III Neurological: alert and oriented Last oral intake: >/= 8 hours ASA classification: III Emergent: no Anesthetic plan: proceed Anesthesia type and monitoring: general GIVS and standard monitoring Results Review: All pre-operative results and documents have been reviewed as part of the pre- operative evaluation. Informed Consent: The patient's anesthetic plan and its attendant risks and benefits were discussed with the patient/family/POA. Questions were solicited and answers pro vided to the satisfaction of the patient/family/POA.
--- NOTE | 2025-03-13 09:53 | P.HP_ITS ---
History of Present Illness History of Present Illness Consent: Risks, benefits, and alternatives have been discussed and questions answered. Patient agrees to proceed with procedure. Chief complaint: Malignant neoplasm of descending colon Narrative: Ari Wheeler is a 39 year old male with stage 3 colon cancer 2023 s/p surgery with + LN s/p chemotherapy here for another colonoscopy. Review of Systems Review of Systems: All systems reviewed & are unremarkable except as noted in HPI and below PMFSH Past Medical History Medical History (Updated 03/13/25 @ 09:54 by Carlos Alberto Yepez MD) History of colon cancer Encounter for surgical aftercare following surgery on the digestive system Former cigarette smoker Cancer of ascending colon metastatic to intra-abdominal lymph node Colorectal cancer Colitis Abdominal pain Right lower quadrant pain Abnormal computed tomography of abdomen and pelvis Mass of cecum Surgical History Surgical History H/O abdominal surgery History of hemicolectomy Hand assisted laparoscopic right hemicolectomy with [id number] stapled ileocolic anastomosis 08/26/23 Family History Family History Mother Breast cancer Father Colon cancer Alcoholism Sibling Breast cancer Grandparent Lung cancer Social History Social History Social History: Surrogate medical decision maker: Chastity Martin, sister. Code status: Full code. Smoking packs per day: 1 Smoking cigarettes per day: 20.0 Years smoked: 20 Smoking pack-years: 20.00 Smoking status: Current every day smoker Tobacco type: e-cigarettes/vaping Second hand tobacco smoke exposure: Yes Smoking end date: 09/14/22 Additional smoking assessment comments: vape Alcohol intake: current Drinks per week: 6 Substance use: current Substance use type: does not use Other substance usage details: daily Last use: 08/25/23 Do You Feel Safe in your Home?: Yes Lack of Transportation: No Lack of Food: Never True Current Housing: I Have Housing Concerned About Future Housing: No Difficulty Paying Gas/Electric Bills: No Difficulty Paying for Meds: No Currently Unemployed: No Education: High School Diploma/GED Difficulty w/ Childcare or Family Care: No Living arrangements: alone Additional living arrangements comments: Lives in his own home in [place]. Not , no children. Occupation/Education: occupation Spiritual care concerns: No Meds Home Medications and Allergies Home Medications ?Medication ?Instructions ?Recorded ?Confirmed ?Type No Home Medications 03/10/25 03/10/25 H istory Allergies Allergy/AdvReac Type Severity Reaction Status Date / Time Sulfa (Sulfonamide Allergy Unknown HIVES Verified 03/13/25 08:45 Antibiotics) Vital Signs Vital Signs - 24 hr 03/13/25 08:49 Temperature 97.7 F Pulse Rate 81 Respiratory Rate 18 Blood Pressure 128/78 Pulse Oximetry 100 Oxygen Delivery Room Air Exam Const: General: comfortable and no acute distress HENMT: Face/Nose/Sinus: Normal nares present Eyes: General: appearance normal, both eyes and all related structures Neck: Neck: no JVD Resp: Auscultation: clear to auscultation bilaterally Cardio: Rate: regular rate Rhythm: regular rhythm GI: Inspection: non-distended GI Palp: Yes Soft to palpation Skin: General skin exam: normal color Extrem: General: normal to inspection Psych: Mental Status: mental status grossly normal Assessment and Plan Assessment and plan (1) History of colon cancer: Code(s): Z85.038 - Personal history of other malignant neoplasm of large intestine Status: Acute Assessment and Plan: colonoscopy
--- NOTE | 2025-03-13 10:10 | S_PTH ---
PATIENT: Ari Wheeler LOC: [facility]#:[id number] AGE/SX: 39/M ROOM: RE03/13/[address]: Carlos Alberto Yepez MD : 1985 BED: DIS: 03/13/2025 SPEC #: [id number] RECD: 03/13/25 10:47 STATUS: ALEKSANDRA RERona #: [id number] ARASH: 03/13/25 10:[address]: Carlos Alberto Yepez DEPT: [facility] Surgical RECD BY: Shirin Beatty ENTERED: 03/13/25 10:48 SP TYPE: Surgical OTHR DR: Kristine Hutchinson APRN Tissues: A - Colon Polypectomy Procedures: Hematoxylin and Eosin Stain Gross and Microscopic Level 4
[2025-03-13 10:15] VITALS: BP 88/58; PULSE 73; RESP 18; O2SAT 97
[2025-03-13 10:25] VITALS: BP 108/77; PULSE 83; RESP 18; O2SAT 97
[2025-03-13 10:35] VITALS: BP 116/81; PULSE 71; RESP 18; O2SAT 97
== END 2025-03-13 10:43 | disposition home or self-care (01) ==
PROVIDERS: PCP Nurse Practitioner Family; Referring Provider Internal Medicine Hematology & Oncology; Visit Provider Internal Medicine Gastroenterology
PROC: 0DJD8ZZ Inspection of Lower Intestinal Tract, Via Natural or Artificial Opening Endoscopic (ICD-10-PCS; CPT 45378; principal; 2025-03-13 10:30)
DX: Z08 Encounter for follow-up examination after completed treatment for malignant neoplasm (principal); D12.3 Benign neoplasm of transverse colon; K64.8 Other hemorrhoids; F17.290 Nicotine dependence, other tobacco product, uncomplicated; Z98.890 Other specified postprocedural states; Z98.0 Intestinal bypass and anastomosis status; Z90.49 Acquired absence of other specified parts of digestive tract; Z92.21 Personal history of antineoplastic chemotherapy; Z85.038 Personal history of other malignant neoplasm of large intestine; Z87.19 Personal history of other diseases of the digestive system; Z80.3 Family history of malignant neoplasm of breast; Z80.0 Family history of malignant neoplasm of digestive organs; Z80.1 Family history of malignant neoplasm of trachea, bronchus and lung
CPT/HCPCS: 45385; 88305; J2003; J2704; J7120